=== PATIENT | male | born 1930 | race Caucasian/White ===

== ENCOUNTER 2016-09-14 12:24 | Day surgery (SDC) | payer OTHER ==
[~2016-09-14 12:24] MED LIST: ACET325 PO; LORTA5 PO; METO25 PO; NORV5TAB PO; OMEP20TA39 PO; PERI8.6T PO; SUCR1TAB PO; TAB-TAB PO; TIMO0.5S4 OP
[2016-09-14 12:57] VITALS: BP 156/90; PULSE 77; RESP 18; TEMP 97.2; O2SAT 94
[2016-09-14] MEDS ORDERED: METO25TA3 PO (13:04)
[2016-09-14] MEDS ORDERED: CARA1TAB6 PO (13:04)
[2016-09-14] MEDS ORDERED: AMLO5 PO (13:05)
[2016-09-14] MEDS ORDERED: PERI8.6T PO (13:06)
[2016-09-14] MEDS ORDERED: FERR1TAB36 PO (13:06)
[2016-09-14] MEDS ORDERED: PROT40TA PO (13:07)
[2016-09-14] MEDS ORDERED: TIMO0.5S30 EACH EYE (13:08)
[2016-09-14] MEDS ORDERED: ACET325T PO (13:09)
[2016-09-14] MEDS ORDERED: IOHEXOL 350 MG/ML 50 ML BTL (for RAD DIAG) IV ONE (13:51)
--- NOTE | 2016-09-14 16:22 | RADRPT ---
EXAM DATE/TIME: 09/14/2016 13:29 [facility] COMPARISON: No previous studies available for comparison. 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 MEDICAL HISTORY : CAD, HTN, Gastric ulcer, GERD, Gout, Anemia, Peritoneal carcinomatosis noted incidentally during surg [place] SURGICAL HISTORY : Antrectomy, Aortic valve replacement, Cholecystectomy, Jejunal bypass, Port placement, Upper endoscop y, Vagotomy ENCOUNTER: Initial ACUITY: 1 day PAIN SCORE: 0/10 FLUORO TIME: 0.2 minutes CONTRAST: 6 cc Omnipaque (iohexol) 350 PROCEDURE : 1. Access of [id number]. 2. Port patency injection. The risks, benefits and alternatives to the procedure were explained and verbal and written consent w as obtained. The patient was placed supine. The port was prepped in sterile fashion. Full sterile t echnique was used, including cap, mask, sterile gloves and gown, and a large sterile sheet. Hand hyg iene and 2% chlorhexidine prep was utilized per protocol for cutaneous antisepsis with appropriate dr y time for site. The previously placed port was accessed and positive contrast was injected for evaluation. Injection demonstrates report reservoir and catheter tubing are intact. The port catheter tip sits in the uppe r superior vena cava, however directed against the lateral wall of the SVC coming straight across fro m the left brachiocephalic vein. A fibrin sheath encompasses the distal 2 cm of the catheter. There i s spill of injected contrast out of the fibrin sheath into the innominate vein and subsequent flow in to the SVC which appears widely patent. The port was blocked with concentrated TPA solution to assist with dissolution of the fibrin sheath. CONCLUSION: The patient's port catheter tubing is positioned so as to lie against the lateral wall of the SVC. A distal fibrin sheath was also present. We introduced TPA in an attempt to resolve the fibrin sheath, however optimal function would necessitate revision of the port with repositioning of catheter tubing down into the low IVC. Maxwell Brambila MD on September 14, 2016 at 16:12 Board Certified Radiologist. This report was verified electronically.
== END 2016-09-14 14:40 | disposition home or self-care (01) ==
LOC: HROP 12:24 → HRIP 12:30 → HROP 14:40
PROVIDERS: ATTEND Internal Medicine Hematology & Oncology
DX: Z45.2 Encounter for adjustment and management of vascular access device (principal); C78.6 Secondary malignant neoplasm of retroperitoneum and peritoneum; C16.9 Malignant neoplasm of stomach, unspecified; I25.10 Atherosclerotic heart disease of native coronary artery without angina pectoris; I10 Essential (primary) hypertension; K21.9 Gastro-esophageal reflux disease without esophagitis; M10.9 Gout, unspecified
CPT/HCPCS: 36598; Q9967

== ENCOUNTER 2016-12-05 12:00 | Inpatient (IN) | payer OTHER, MEDICARE ==
[2016-12-05] VITALS (8 sets, daily range): BP systolic 130–164; BP diastolic 58–80; PULSE 52–62; RESP 15–22; TEMP 97.3–98.5; O2SAT 97–100
[~2016-12-05] VITALS: Ht 175.3 cm; Wt 55.0 kg
[~2016-12-05 12:00] MED LIST changes: -ACET325 PO; +ACET325T PO; +AMLO5 PO; +CARA1TAB6 PO; +FERR1TAB36 PO; -LORTA5 PO; -METO25 PO; +METO25TA3 PO; -NORV5TAB PO; -OMEP20TA39 PO; +PROT40TA PO; -SUCR1TAB PO; -TAB-TAB PO; +TIMO0.5S30 EACH EYE; -TIMO0.5S4 OP
[2016-12-05] MEDS ORDERED: SODIUM CHLOR 0.9% 1000 ML INJ 1,000 ML IV SCH (12:25)
[2016-12-05] MEDS ORDERED: ONDANSETRON HCL 4 MG/2 ML VIAL IVP ONE (12:30)
--- NOTE | 2016-12-05 12:42 | PD ---
HPI Chief Complaint: GI Complaint Time Seen by Provider: 12:37 Travel History International Travel<30 days: No Contact w/Intl Traveler<30days: No Traveled to known affect area: No History of Present Illness HPI 86-year-old male that presents to the ED for evaluation of nausea and vomiting for the past 5 days. Per patient he is unable to keep anything down. Including fluids and solids. Per patient he always throws them up. His been feeling very nauseous. He has a history of stomach cancer discovered last year around May. Patient is currently undergoing chemotherapy for the cancer. Per patient his last chemotherapy was done 2 weeks ago. Per patient he gets some nausea and vomited and some discomfort from the chemotherapy but not as bad as this time. Per patient he went to see his oncologist Dr. Rodrigues today who recommended that he comes here to get evaluated. He denies any fevers chills or sweats. His last bowel movement was yesterday and it was dark which per patient is his normal secondary to taking a lot of iron for his chronic anemia. Patient denies any chest pain or shortness of breath. No abdominal pain. Per patient he has no blood from the rectum or from the vomit. He denies any falls or injuries. Denies taking any blood thinners. Per patient he is taking antiemetics at home with no relief. He does not have any recent surgeries other than the surgery on May. Denies any pain. Denies any other medical problem. He does state feeling somewhat weak. PFSH Past Medical History Arthritis: Yes (LEFT KNEE) Cancer: No Cardiovascular Problems: Yes Chemotherapy: Yes Diminished Hearing: No Endocrine: No GERD: Yes Gout: Yes Genitourinary: No Hypertension: Yes Immune Disorder: No Musculoskeletal: Yes Neurologic: No Psychiatric: No Reproductive: No Respiratory: No Ulcer: Yes (1986) Past Surgical History Abdominal Surgery: Yes (09/04 STOMACH REMOVED, GALL BLADDER, APPY, mulitple sx related ulcers) Cardiac Surgery: Yes (aortic valve replacement 03/2011) Cholecystectomy: Yes Other Surgery: Yes (VAGUS NERVE REMOVED ) Social History Alcohol Use: No (denies) Tobacco Use: No Substance Use: No Allergies-Medications (Allergen,Severity, Reaction): Coded Allergies: No Known Allergies (Verified , 12/05/16) Reported Meds & Prescriptions Reported Meds & Active Scripts Active Reported Acetaminophen 325 Mg Tab 650 Mg PO Q4H PRN Timolol Opth Drops 0.5 % Soln 1 Drop EACH EYE BID Iron (Ferrous Sulfate) 325 Mg Tab 325 Mg PO DAILY Take Norvasc (Amlodipine Besylate) 5 Mg Tab 5 Mg PO DAILY Metoprolol Tartrate 25 Mg Tab 25 Mg PO DAILY Review of Systems Except as stated in HPI: all other systems reviewed are Neg Physical Exam Narrative GENERAL: SKIN: Warm and dry. HEAD: Atraumatic. Normocephalic. EYES: Pupils equal and round. No scleral icterus. No injection or drainage. ENT: No nasal bleeding or discharge. Mucous membranes pink and moist. Tongue is midline. No uvula deviation. NECK: Trachea midline. No JVD. CARDIOVASCULAR: Regular rate and rhythm. No murmurs, S3, S4. RESPIRATORY: No accessory muscle use. Clear to auscultation. Breath sounds equal bilaterally. GASTROINTESTINAL: Abdomen soft, non-tender, nondistended. Hepatic and splenic margins not palpable. MUSCULOSKELETAL: Extremities without clubbing, cyanosis, or edema. No obvious deformities. Full range of motion of the upper and lower extremities bilaterally. 2+ pulses bilaterally. No lumbar, thoracic, cervical spine tenderness to palpation. NEUROLOGICAL: Awake and alert. No obvious cranial nerve deficits. Motor grossly within normal limits. Five out of 5 muscle strength in the arms and legs. Normal speech. PSYCHIATRIC: Appropriate mood and affect; insight and judgment normal. Data Data Last Documented VS Vital Signs Date Time Temp Pulse Resp B/P Pulse Ox O2 Delivery O2 Flow Rate FiO2 12/05/16 14:18 59 16 137/58 97 12/05/16 12:30 Room Air 12/05/16 12:03 98.3 Orders Complete Blood Count With Diff (12/05/16 12:25) Comprehensive Metabolic Panel (12/05/16 12:25) Lipase (12/05/16 12:25) Lactic Acid (12/05/16 12:25) Urinalysis - C+S If Indicated (12/05/16 12:25) Iv Access Insert/Monitor (12/05/16 12:25) Ecg Monitoring (12/05/16 12:25) Oximetry (12/05/16 12:25) Ondansetron Inj (Zofran Inj) (12/05/16 12:30) Sodium Chlor 0.9% 1000 Ml Inj (Ns 1000 M (12/05/16 12:25) Ct Abd/Pel W Iv Contrast(Rout) (12/05/16 12:34) Iohexol 350 Inj (Omnipaque 350 Inj) (12/05/16 14:25) Admit Order (Ed Use Only) (12/05/16 15:36) Place In Observation (12/05/16 ) Vital Signs (Adult) Q4H (12/05/16 15:35) Activity Oob Ad Brooke (12/05/16 15:35) Intake + Output ANIA.QSHIFT (12/05/16 15:35) Diet Regular Basic (12/05/16 Dinner) Sodium Chlor 0.9% 1000 Ml Inj (Ns 1000 M (12/05/16 15:35) Sodium Chloride 0.9% Flush (Ns Flush) (12/05/16 15:45) Sodium Chloride 0.9% Flush (Ns Flush) (12/05/16 21:00) Acetaminophen (Tylenol) (12/05/16 15:45) Ondansetron Inj (Zofran Inj) (12/05/16 15:45) Prochlorperazine Supp (Compazine Supp) (12/05/16 15:45) Basic Metabolic Panel (Bmp) (12/06/16 06:00) Complete Blood Count With Diff (12/06/16 06:00) Resp Oxygen Miguel A C Titrat 1-4 L (12/05/16 ) Pt Request For Service (12/05/16 15:35) Case Management Consult (12/05/16 15:35) Enoxaparin Inj (Lovenox Inj) (12/05/16 15:45) Scd Bilateral/Knee High ANIA.BID (12/05/16 15:35) Gomez Bilateral/Knee High ANIA.QSHIFT (12/05/16 15:35) Consult Medical Oncology (12/05/16 ) Amlodipine (Norvasc) (12/06/16 09:00) Ferrous Sulfate (Ferrous Sulfate) (12/06/16 09:00) Metoprolol Tartrate (Lopressor) (12/06/16 09:00) Timolol 0.5% Opth Soln (Timoptic 0.5% Op (12/05/16 21:00) Labs Laboratory Tests Test 12/05/16 12/05/16 12:15 14:30 White Blood Count 9.0 TH/MM3 Red Blood Count 4.65 MIL/MM3 Hemoglobin 12.9 GM/DL Hematocrit 39.3 % Mean Corpuscular Volume 84.4 FL Mean Corpuscular Hemoglobin 27.8 PG Mean Corpuscular Hemoglobin 32.9 % Concent Red Cell Distribution Width 25.1 % Platelet Count 229 TH/MM3 Mean Platelet Volume 8.1 FL Neutrophils (%) (Auto) 70.1 % Lymphocytes (%) (Auto) 13.9 % Monocytes (%) (Auto) 12.6 % Eosinophils (%) (Auto) 2.7 % Basophils (%) (Auto) 0.7 % Neutrophils # (Auto) 6.3 TH/MM3 Lymphocytes # (Auto) 1.3 TH/MM3 Monocytes # (Auto) 1.1 TH/MM3 Eosinophils # (Auto) 0.2 TH/MM3 Basophils # (Auto) 0.1 TH/MM3 CBC Comment AUTO DIFF Differential Comment AUTO DIFF CONFIRMED Platelet Estimate NORMAL Platelet Morphology Comment NORMAL Tear Drop Cells Ovalocytes Keratocytes OCC Sodium Level 143 MEQ/L Potassium Level 3.3 MEQ/L Chloride Level 101 MEQ/L Carbon Dioxide Level 35.6 MEQ/L Anion Gap 6 MEQ/L Blood Urea Nitrogen 12 MG/DL Creatinine 0.56 MG/DL Estimat Glomerular Filtration 138 ML/MIN Rate Random Glucose 100 MG/DL Lactic Acid Level 1.5 mmol/L Calcium Level 9.4 MG/DL Total Bilirubin 0.5 MG/DL Aspartate Amino Transf 44 U/L (AST/SGOT) Alanine Aminotransferase 22 U/L (ALT/SGPT) Alkaline Phosphatase 76 U/L Total Protein 6.9 GM/DL Albumin 3.3 GM/DL Lipase 73 U/L Urine Color YELLOW Urine Turbidity HAZY Urine pH 7.5 Urine Specific [place] 1.017 Urine Protein NEG mg/dL Urine Glucose (UA) NEG mg/dL Urine Ketones NEG mg/dL Urine Occult Blood NEG Urine Nitrite NEG Urine Bilirubin NEG Urine Urobilinogen LESS THAN 2.0 MG/DL Urine Leukocyte Esterase NEG Urine RBC LESS THAN 1 /hpf Urine WBC 4 /hpf Urine Amorphous Sediment RARE Urine Hyaline Casts 1 /lpf Urine Mucus FEW /lpf Microscopic Urinalysis Comment CULT NOT INDICATED MDM Medical Decision Making Medical Screen Exam Complete: Yes Emergency Medical Condition: Yes Medical Record Reviewed: Yes Interpretation(s) CBC & BMP Diagram 4/4/17 12:15 LFTs WNL Lipase WNL UA negative Last Impressions Abdomen/Pelvis CT 12/05/16 1234 Signed Impressions: Service Date/Time: Monday, December 05, 2016 14:22 - CONCLUSION: 1. No evidence of acute abdominal or pelvic process. No masses are identified. 2. Continued marked dilatation common bile duct 2 cm without evidence of stone. 3. The previously seen cyst at the tail the pancreas is no longer identified. Dony Brown MD Differential Diagnosis Nausea and vomiting versus intractable nausea and vomiting versus dehydration versus inability to eat versus cancer pain versus obstruction versus anemia versus constipation versus acute abdomen Narrative Course 86-year-old male that presents to the ED for evaluation of nausea and vomiting. Patient was properly examined and was found to have signs and symptoms consistent with appears to be nausea and vomiting. Concerning for possible obstruction present as patient does have significant history. Apparently patient went to see his oncologist today Dr. Rodrigues who sent him here and per family member and patient he wanted a CT. There is no paperwork from the doctor of why specifically he wanted. Therefore a call was made to him. This time labs and imaging were ordered. Patient was started IV fluids as well as antiemetics. I spoke with Dr. Rodrigues over the phone who wanted patient to have a CT of the abdomen to rule out any sign of obstruction. He also told me that if the patient's CT does show any acute disease he will still like the patient to be admitted for intractable nausea and vomited for better nausea control and rehydration. This was discussed with the patient and family who agree with plan. Labs were drawn. CT was ordered. Labs and imaging were essentially unremarkable at this time. Slight anemia but this appears to be consistent with his previous labs. Patient was given IV fluids and antiemetics with good results at this time. He does however still feel very nauseous. He agrees with plan. AL was paged as patient is [employer]. Dr Wilson agrees to obs admission. Diagnosis Primary Impression: Intractable nausea and vomiting Qualified Code: R11.2 - Intractable vomiting with nausea, unspecified vomiting type Additional Impression: Abdominal carcinomatosis Admitting Information Admitting Physician Requests: Nabil Chand Dec 05, 2016 12:42
[2016-12-05 12:58] LABS: AUTOMATED NEUTROPHIL # 6.3 TH/MM3 (1.8-7.7); BASOPHIL # 0.1 TH/MM3 (0-0.2); BASOPHIL % 0.7 % (0.0-2.0); EOSINOPHIL # 0.2 TH/MM3 (0-0.4); EOSINOPHIL % 2.7 % (0.0-4.0); HEMATOCRIT 39.3 % (39.0-51.0); LYMPH % 13.9 % (9.0-44.0); LYMPHOCYTE # 1.3 TH/MM3 (1.0-4.8); MEAN CELL VOLUME 84.4 FL (80.0-100.0); MEAN CORPUSCULAR HEMOGLOBIN 27.8 PG (27.0-34.0); MEAN CORPUSCULAR HGB CONC 32.9 % (32.0-36.0); MONO % 12.6 % (0.0-8.0); NEUT % 70.1 % (16.0-70.0); PLATELET COUNT 229 TH/MM3 (150-450); RED BLOOD COUNT 4.65 MIL/MM3 (4.50-5.90); RED CELL DISTRIBUTION WIDTH 25.1 % (11.6-17.2)
[2016-12-05 13:00] LABS: HEMO FLAGS AUTO DIFF
[2016-12-05 13:13] LABS: ALT (GPT) 22 U/L (12-78); ANION GAP 6 MEQ/L (5-15); AST (GOT) 44 U/L (15-37); BICARBONATE 35.6 MEQ/L (21.0-32.0); BLOOD UREA NITROGEN 12 MG/DL (7-18); CHLORIDE 101 MEQ/L (98-107); GLOMERULAR FILTRATION RATE 138 ML/MIN (>89); POTASSIUM 3.3 MEQ/L (3.5-5.1); SODIUM (NA) 143 MEQ/L (136-145)
[2016-12-05 13:16] LABS: ALKALINE PHOSPHATASE 76 U/L (45-117); TOTAL BILIRUBIN ADULT 0.5 MG/DL (0.2-1.0)
[2016-12-05 13:29] LABS: KERATOCYTES OCC (NORMAL); PLATELET ESTIMATE SMEAR NORMAL (NORMAL); PLATELET MORPHOLOGY NORMAL (NORMAL); SCAN/DIFF AUTO DIFF CONFIRMED
[2016-12-05] MEDS ORDERED: IOHEXOL 350 MG/ML 10 ML VIAL (for RAD DIAG) IV ONE (14:25)
--- NOTE | 2016-12-05 15:06 | RADRPT ---
EXAM DATE/TIME: 12/05/2016 14:22 [facility] COMPARISON: CT ABDOMEN W CONTRAST, May 17, 2016, 15:57. CT THORAX W CONTRAST, May 17, 2016, 15:57. INDICATIONS : Abdominal pain and vomiting. IV CONTRAST: 75 cc Omnipaque 350 (iohexol) IV ORAL CONTRAST: No oral contrast ingested. RADIATION DOSE: 6.78 CTDIvol (mGy) MEDICAL HISTORY : Carcinoma, colon. Hypertension. SURGICAL HISTORY : Appendectomy. Cholecystectomy.Bowel surgery ENCOUNTER: Initial ACUITY: 4 - 6 days PAIN SCALE: 5/10 LOCATION: Bilateral abdomen TECHNIQUE: Volumetric scanning of the abdomen and pelvis was performed. Using automated exposure control and ad justment of the mA and/or kV according to patient size, radiation dose was kept as low as reasonably achievable to obtain optimal diagnostic quality images. FINDINGS: There is stable pleural thickening anteriorly in the left base. The liver and spleen are normal in si ze and no focal defects are identified. The gallbladder is absent. The pancreas demonstrates normal c ontour without evidence of mass or ductal dilatation. The intrahepatic ducts and common bile duct are prominent which may reflect reservoir effect. The pancreas demonstrates atrophy but is otherwise unr emarkable. A small hiatal hernia is present. The adrenal glands and kidneys appear normal bilaterally . No hydronephrosis or mass lesions are identified. Extensive postoperative changes are present the u pper abdomen with Billroth II type surgery Examination of the pelvis demonstrates no evidence of free fluid or pelvic mass. No abnormally enlarg ed inguinal or retroperitoneal lymph nodes are present. The bladder is unremarkable. There is diverti culosis without evidence of diverticulitis. CONCLUSION: 1. No evidence of acute abdominal or pelvic process. No masses are identified. 2. Continued marked dilatation common bile duct 2 cm without evidence of stone. 3. The previously seen cyst at the tail the pancreas is no longer identified. Dony Brown MD on December 05, 2016 at 14:53 Board Certified Radiologist. This report was verified electronically.
[2016-12-05 15:11] LABS: BLOOD, URINE NEG (NEG); COMMENT (UR) CULT NOT INDICATED; CULTURE IF INDICATED CULT NOT INDICATED; GLUCOSE,URINE NEG (NEG); HYALINE CAST, URINE 1 /lpf (RARE); KETONE, URINE NEG (NEG); MUCUS URINE FEW /lpf (OCC); NITRITE,URINE NEG (NEG); PH, URINE 7.5 (5.0-8.5); URINE COLOR YELLOW (YELLW/STRAW)
[2016-12-05] MEDS ORDERED: ACETAMINOPHEN 325 MG TAB PO PRN (15:45)
[2016-12-05] MEDS ORDERED: SODIUM CHLORIDE 0.9% FLUSH 10 ML FLUSH IV FLUSH PRN (15:45)
[2016-12-05] MEDS ORDERED: PROCHLORPERAZINE 25 MG SUPP RECTAL PRN (15:45)
[2016-12-05] MEDS: SODIUM CHLOR 0.9% 1000 ML INJ 1,000 ML IV SCH ×2 (15:49→20:46)
[2016-12-05] MEDS: ENOXAPARIN SODIUM 40 MG/0.4 ML SYRINGE SQ SCH (16:17)
[2016-12-05] MEDS: ONDANSETRON HCL 4 MG/2 ML VIAL IVP PRN (18:27)
[2016-12-05] MEDS: TIMOLOL MALEATE 0.5% OPHT SOLN 5 ML BTL EACH EYE SCH (20:41)
[2016-12-05] MEDS ORDERED: DORZ2SOL15 EACH EYE (20:44)
[2016-12-05] MEDS: SODIUM CHLORIDE 0.9% FLUSH 10 ML FLUSH IV FLUSH SCH (20:45)
--- NOTE | 2016-12-05 22:50 | HHI.HP ---
[facility] Andrew Shoemaker MD Admission Diagnosis Intractable nausea and vomiting, stomach cancer Diagnoses: (1) Intractable nausea and vomiting Diagnosis: Principal Chief Complaint: nausea and vomiting Travel History International Travel<30 Days: No Contact w/Intl Traveler <30 Da: No Traveled to Known Affected Are: No History of Present Illness patient is a 86 y/o male with metastatic gastric cancer- on chemo, was advised to come to the hospital by his oncologist because of persistent nausea and vomiting. he says that his last session of chemo was about two weeks ago. he started to have nausea and vomiting since ten days ago. he says that the last time he threw up was earlier tonight. he denies any abdominal pain or diarrhea. he's being followed up by . Review of Systems Constitutional: DENIES: Fever, Weight loss, Chills, Night Sweats Eyes: DENIES: Blurred vision, Diplopia, Vision loss, Double Vision Ears, nose, mouth, throat: DENIES: Tinnitus, Vertigo, Throat pain, Epistaxis Respiratory: DENIES: Apneas, Cough, Snoring, Wheezing, Hemoptysis, Sputum production, Shortness of breath Cardiovascular: DENIES: Chest pain, Palpitations, Syncope, Dyspnea on Exertion , PND, Lower Extremity Edema, Orthopnea, Claudication Gastrointestinal: COMPLAINS OF: Nausea, Vomiting, DENIES: Abdominal pain, Black stools, Bloody stools, Constipation, Difficulty Swallowing, Anorexia Genitourinary: DENIES: Urinary frequency, Urgency, Hematuria, Dysuria Musculoskeletal: DENIES: Joint pain, Muscle aches, Stiffness, Joint Swelling Integumentary: DENIES: Rash Neurologic: DENIES: Abnormal gait, Headache, Localized weakness, Paresthesias, Seizures, Speech Problems, Tremor, Poor Balance Psychiatric: DENIES: Anxiety, Confusion, Mood changes, Depression, Hallucinations, Agitation, Suicidal Ideation, Homicidal Ideation, Delusions Past Family Social History Past Medical History metastatic gastric cancer hypertension Past Surgical History abdominal surgery aortic valve replacement cholecystectomy Reported Medications Acetaminophen 325 Mg Tab 650 Mg PO Q4H PRN Timolol Opth Drops 0.5 % Soln 1 Drop EACH EYE BID Iron (Ferrous Sulfate) 325 Mg Tab 325 Mg PO DAILY Take Norvasc (Amlodipine Besylate) 5 Mg Tab 5 Mg PO DAILY Metoprolol Tartrate 25 Mg Tab 25 Mg PO DAILY Allergies: Coded Allergies: No Known Allergies (Verified , 12/05/16) Active Ordered Medications Current Medications Ondansetron HCl 4 mg 4 mg ONCE ONCE IVP Last administered on 12/05/16 12:49; Start 12/05/16 at 12:30; Stop 12/05/16 at 12:31; Status DC Sodium Chloride (NS 1000 ml Inj) 1,000 ml @ 1,000 mls/hr Q1H IV Last administered on 12/05/16 12:49; Start 12/05/16 at 12:25; Stop 12/05/16 at 13:24; Status DC Iohexol 75 ml 75 ml STK-MED ONCE IV Last administered on 12/05/16 14:25; Start 12/05/16 at 14:25; Stop 12/05/16 at 14:26; Status DC Sodium Chloride (NS 1000 ml Inj) 1,000 ml @ 100 mls/hr Q10H IV Last administered on 12/05/16 20:46; Start 12/05/16 at 15:35 Sodium Chloride (NS Flush) 2 ml UNSCH PRN IV FLUSH FLUSH AFTER USING IV ACCESS ; Start 12/05/16 at 15:45 Sodium Chloride (NS Flush) 2 ml BID IV FLUSH Last administered on 12/05/16 20: 45; Start 12/05/16 at 21:00 Acetaminophen (Tylenol) 650 mg Q4H PRN PO TEMP > 100.4; Start 12/05/16 at 15:45 Ondansetron HCl (Zofran Inj) 4 mg Q6H PRN IVP NAUSEA OR VOMITING Last administered on 12/05/16 18:27; Start 12/05/16 at 15:45 Prochlorperazine (Compazine Supp) 25 mg Q12H PRN RECTAL N/V IF ZOFRAN DOESN'T WORK; Start 12/05/16 at 15:45 Enoxaparin Sodium (Lovenox Inj) 40 mg Q24H SQ Last administered on 12/05/16 16: 17; Start 12/05/16 at 15:45 Amlodipine Besylate (Norvasc) 5 mg DAILY PO ; Start 12/06/16 at 09:00 Ferrous Sulfate (Ferrous Sulfate) 325 mg DAILY PO ; Start 12/06/16 at 09:00 Metoprolol Tartrate (Lopressor) 25 mg DAILY PO ; Start 12/06/16 at 09:00 Timolol Maleate (Timoptic 0.5% Opt Soln) 1 drop BID EACH EYE Last administered on 12/05/16t 20:41; Start 12/05/16 at 21:00 Family History cancer in sister and father. Social History quit smoking many years ago. drinks occasionally. Physical Exam Vital Signs Vital Signs Date Time Temp Pulse Resp B/P Pulse Ox O2 Delivery O2 Flow Rate FiO2 12/05/16 19:36 97.8 60 22 157/78 99 12/05/16 17:40 98.5 62 16 161/79 100 12/05/16 15:51 98.4 56 16 164/75 98 Room Air 12/05/16 14:18 59 16 137/58 97 12/05/16 12:30 98 Room Air 12/05/16 12:19 52 16 160/74 97 Room Air 12/05/16 12:03 98.3 62 15 148/80 100 Physical Exam GENERAL: elderly male, in no apparent distress. SKIN: No rashes, ecchymoses or lesions. Cool and dry. HEAD: Atraumatic. Normocephalic. No temporal or scalp tenderness. EYES: Pupils equal round and reactive. Extraocular motions intact. No scleral icterus. No injection or drainage. ENT: Nose without bleeding, purulent drainage or septal hematoma. Throat without erythema, tonsillar hypertrophy or exudate. Uvula midline. Airway patent. NECK: Trachea midline. No JVD or lymphadenopathy. Supple, nontender, no meningeal signs. CARDIOVASCULAR: systolic murmur in aortic area RESPIRATORY: Clear to auscultation. Breath sounds equal bilaterally. No wheezes , rales, or rhonchi. GASTROINTESTINAL: Abdomen soft, non-tender, nondistended. MUSCULOSKELETAL: Extremities without clubbing, cyanosis, or edema. No joint tenderness, effusion, or edema noted. No calf tenderness. Negative Homans sign bilaterally. NEUROLOGICAL: Awake and alert. Cranial nerves II through XII intact. Motor and sensory grossly within normal limits. Five out of 5 muscle strength in all muscle groups. Normal speech. Laboratory Laboratory Tests Test 12/05/16 12/05/16 12:15 14:30 White Blood Count 9.0 Red Blood Count 4.65 Hemoglobin 12.9 Hematocrit 39.3 Mean Corpuscular Volume 84.4 Mean Corpuscular Hemoglobin 27.8 Mean Corpuscular Hemoglobin 32.9 Concent Red Cell Distribution Width 25.1 Platelet Count 229 Mean Platelet Volume 8.1 Neutrophils (%) (Auto) 70.1 Lymphocytes (%) (Auto) 13.9 Monocytes (%) (Auto) 12.6 Eosinophils (%) (Auto) 2.7 Basophils (%) (Auto) 0.7 Neutrophils # (Auto) 6.3 Lymphocytes # (Auto) 1.3 Monocytes # (Auto) 1.1 Eosinophils # (Auto) 0.2 Basophils # (Auto) 0.1 CBC Comment AUTO DIFF Differential Comment AUTO DIFF CONFIRMED Platelet Estimate NORMAL Platelet Morphology Comment NORMAL Tear Drop Cells Ovalocytes Keratocytes OCC Sodium Level 143 Potassium Level 3.3 Chloride Level 101 Carbon Dioxide Level 35.6 Anion Gap 6 Blood Urea Nitrogen 12 Creatinine 0.56 Estimat Glomerular Filtration 138 Rate Random Glucose 100 Lactic Acid Level 1.5 Calcium Level 9.4 Total Bilirubin 0.5 Aspartate Amino Transf 44 (AST/SGOT) Alanine Aminotransferase 22 (ALT/SGPT) Alkaline Phosphatase 76 Total Protein 6.9 Albumin 3.3 Lipase 73 Urine Color YELLOW Urine Turbidity HAZY Urine pH 7.5 Urine Specific [place] 1.017 Urine Protein NEG Urine Glucose (UA) NEG Urine Ketones NEG Urine Occult Blood NEG Urine Nitrite NEG Urine Bilirubin NEG Urine Urobilinogen LESS THAN 2.0 Urine Leukocyte Esterase NEG Urine RBC LESS THAN 1 Urine WBC 4 Urine Amorphous Sediment RARE Urine Hyaline Casts 1 Urine Mucus FEW Microscopic Urinalysis Comment CULT NOT INDICATED Result Diagram: 12/05/16 1215 12/05/16 1215 Imaging Last Impressions Abdomen/Pelvis CT 12/05/16 1234 Signed Impressions: Service Date/Time: Monday, December 05, 2016 14:22 - CONCLUSION: 1. No evidence of acute abdominal or pelvic process. No masses are identified. 2. Continued marked dilatation common bile duct 2 cm without evidence of stone. 3. The previously seen cyst at the tail the pancreas is no longer identified. Dony Brown MD Assessment and Plan Assessment and Plan A/P - peritoneal carcinomatosis/ metastatic gastric cancer - on chemo with intractable nausea/ vomiting start on liquid diet- antiemetics as needed- oncology consulted. -hypertension; resume home BP meds; metoprolol and norvasc- will monitor and adjust the regimen as needed -hypokalemia; will replace and monitor -s/p aortic valve replacement ( bovine) -DVT prophylaxis with lovenox Discussed Condition With the patient. Problem Qualifiers (1) Intractable nausea and vomiting: Qualified Code: R11.2 - Intractable vomiting with nausea, unspecified vomiting type Florecita Gomez MD Dec 05, 2016 22:50
[2016-12-05] MEDS ORDERED: ZOLPIDEM TARTRATE 5 MG TAB PO PRN (23:00)
[2016-12-06 03:29] VITALS: BP 134/71; PULSE 57; RESP 20; TEMP 97.7; O2SAT 97
[2016-12-06 05:25] LABS: BICARBONATE 32.6 MEQ/L (21.0-32.0)
[2016-12-06 05:36] LABS: POTASSIUM 3.1 MEQ/L (3.5-5.1)
[2016-12-06] MEDS ORDERED: POTASSIUM CHLORIDE 20 MEQ CONTROLLED RELEASE TAB PO ONE (07:30)
[2016-12-06] MEDS: TIMOLOL MALEATE 0.5% OPHT SOLN 5 ML BTL EACH EYE SCH ×2 (07:55→21:00)
[2016-12-06] MEDS: amLODIPine BESYLATE 5 MG TAB PO SCH (07:56)
[2016-12-06] MEDS: FERROUS SULFATE 325 MG (65 MG ELEMENTAL IRON) TAB PO SCH (07:56)
[2016-12-06] MEDS: METOPROLOL TARTRATE 25 MG TAB PO SCH (07:56)
[2016-12-06] MEDS: SODIUM CHLORIDE 0.9% FLUSH 10 ML FLUSH IV FLUSH SCH ×2 (07:57→21:12)
[2016-12-06 08:20] VITALS: BP 164/81; PULSE 72; RESP 18; O2SAT 99
[2016-12-06 09:09] LABS: AUTOMATED NEUTROPHIL # 3.8 TH/MM3 (1.8-7.7); BASOPHIL # 0.1 TH/MM3 (0-0.2); EOSINOPHIL # 0.3 TH/MM3 (0-0.4); EOSINOPHIL % 4.6 % (0.0-4.0); HEMATOCRIT 37.9 % (39.0-51.0); HEMO FLAGS DIFF FINAL; LYMPH % 19.6 % (9.0-44.0); LYMPHOCYTE # 1.2 TH/MM3 (1.0-4.8); MEAN CELL VOLUME 84.6 FL (80.0-100.0); MEAN CORPUSCULAR HGB CONC 31.9 % (32.0-36.0); MONO % 13.8 % (0.0-8.0); PLATELET COUNT 175 TH/MM3 (150-450); RED BLOOD COUNT 4.48 MIL/MM3 (4.50-5.90); RED CELL DISTRIBUTION WIDTH 24.7 % (11.6-17.2); WHITE BLOOD COUNT 6.2 TH/MM3 (4.0-11.0)
--- NOTE | 2016-12-06 09:38 | MB ---
cc: CARIDAD STARR M.D. DATE OF SERVICE December 06, [address] Gomez REASON FOR ONCOLOGY CONSULT To render opinion regarding patient with metastatic gastric cancer, admitted with intractable vomiting and dehydration. HISTORY OF PRESENT ILLNESS The patient is a very pleasant 86-year-old male with history of peritoneal carcinomatosis which appeared to be a metastatic gastric carcinoma, admitted with intractable vomiting. He first presented in May of 2016 with worsening nausea and vomiting. 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 He underwent exploratory laparotomy and during surgery the afferent loop was noted to be obstructive and he was also found to have scattered small nodules throughout the abdomen, mostly in the left upper quadrant. Biopsy showed moderately differentiated adenocarcinoma mucinous features, thought to be gastric cancer. He later had an outpatient PET scan which showed thickened gastric wall with significant hypermetabolic uptake. He wanted to be aggressive with treatment and was started on dose reduced FOLFOX chemotherapy. He just completed a fifth cycle of chemotherapy in the middle of November. He went to [place] for vacation and while over there he started developing vomiting. He stated he has no nausea, he will throw up a short while after he eats. He was not able to keep any liquid or solid food down for several days. When I saw him in the clinic, he appeared dehydrated. He was directed to go to the emergency room. He denies any abdominal pain. He has no fever or chills. He was gaining weight while he was on chemotherapy but now started losing weight again. Denies any chest pain, palpitations, any shortness of breath or cough. PAST MEDICAL HISTORY 1. Metastatic esophageal cancer with peritoneal carcinomatosis as above. 2. Coronary artery disease. 3. Gastric ulcer. 4. Gastroesophageal reflux disease. 5. Gout. 6. Hypertension. 7. Anemia. PAST SURGICAL HISTORY 1. Antrectomy. 2. aortic valve replacement. 3. Cholecystectomy. 4. Jejunal bypass. 5. Port placement. 6. Upper endoscopy. 7. Vagotomy. 8. Cataract surgery. FAMILY HISTORY Noncontributory. SOCIAL HISTORY He quit smoking in 1965. He only smoked for about five years. Denies alcohol use at this time. ALLERGIES No known drug allergy. MEDICATIONS 1. Potassium. 2. Amlodipine. 3. Ferrous sulfate. 4. Metoprolol. 5. Timolol eye drops. 6. Lovenox. REVIEW OF SYSTEMS CONSTITUTIONAL: He has weight loss secondary to vomiting. EYES: He denies any blurry vision, double vision. ENT: No mouth sores or voice changes. CARDIOVASCULAR: No chest pressure, palpitation. RESPIRATORY: Denies shortness of breath or cough. GI: As above. : No dysuria or hematuria. MUSCULOSKELETAL: Denies any bone pain. HEMATOLOGY: Negative. ENDOCRINE: Negative. DERMATOLOGY: Negative. PSYCHIATRIC: Negative. NEUROLOGIC: Negative. PHYSICAL EXAMINATION VITALS: Temperature 97.7, blood pressure 134/71. GENERAL: He is alert and oriented x 3, in no acute distress. Looks weak. HEENT: Atraumatic, normocephalic. Pupils equal, round and reactive to light. Extraocular muscles intact. No scleral icterus. Oropharynx - dry mucosa, no lesion. NECK: No thyromegaly. No palpable mass. LYMPHATICS: No palpable cervical, clavicular, axillary or inguinal lymph nodes. CARDIOVASCULAR: Regular S1 and S1-S2. No murmur. LUNGS: Clear to auscultation bilaterally. No wheezing or rhonchi. ABDOMEN: Soft, scaphoid. I could not palpate liver or spleen. Nontender. Bowel sounds decreased. EXTREMITIES: No cyanosis, clubbing or edema. BACK: No paravertebral tenderness. SKIN: No rash. NEUROLOGIC: Exam nonfocal. LABORATORY DATA Reviewed ASSESSMENT 1. Metastatic gastric cancer. He first presented with afferent loop obstruction. He was found to have peritoneal carcinomatosis mostly in the left upper quadrant. Biopsy showed moderately differentiated carcinoma. PET scan showed thickened gastric wall with significant uptake consistent with gastric cancer. He has now completed five cycles of FOLFOX chemotherapy. He had tolerated chemotherapy quite well. He was doing quite well before he developed the vomiting. He denies any nausea. I do not think his vomiting is due to the chemotherapy. His last chemotherapy was in the middle of November. He had a CT scan yesterday which did not show clear evidence of progression of disease or obstruction. He felt a little bbetter with IV fluid hydration. However, he still could not keep anything down. He tried to eat twice last night and threw up both times. I am going to consult Gastroenterology for further evaluation. 2. Anemia due to iron deficiency. Hemoglobin is stable. 3. Coronary disease, stable. 4. Hypertension, stable. PLAN 1. Reviewed CT scan with the patient. 2. Consult gastroenterology for further evaluation. 3. Continue hydration. He may need intravenous nutrition if he is still not able to keep anything down. 4. DVT prophylaxis. Thank you Dr. Gomez for asking me to see this patient. MD YOSELIN Barlow/LUIS ANGEL /8:28 AM /9:17 AM KENNTEH
--- NOTE | 2016-12-06 10:20 | HHI.PR ---
Subjective Remarks Follow-up for dysphagia. The patient states that he has not been able to tolerate solids or liquids for the past 6 days without vomiting. He continues to report nausea overnight whenever he tries to drink anything. He states he had a normal BM yesterday. Objective Vitals Vital Signs Date Time Temp Pulse Resp B/P Pulse Ox O2 Delivery O2 Flow Rate FiO2 12/06/16 08:20 72 18 164/81 99 12/06/16 03:29 97.7 57 20 134/71 97 12/05/16 23:20 97.3 54 20 130/65 97 12/05/16 19:36 97.8 60 22 157/78 99 12/05/16 17:40 98.5 62 16 161/79 100 12/05/16 15:51 98.4 56 16 164/75 98 Room Air 12/05/16 14:18 59 16 137/58 97 12/05/16 12:30 98 Room Air 12/05/16 12:19 52 16 160/74 97 Room Air 12/05/16 12:03 98.3 62 15 148/80 100 I/O 12/05/16 12/05/16 12/05/16 12/06/16 12/06/16 12/06/16 07:00 15:00 23:00 07:00 15:00 23:00 Intake Total 2000 ml Output Total 975 ml 650 ml 200 ml Balance 1025 ml -650 ml -200 ml Intake IV Total 2000 ml Output Urine Total 975 ml 650 ml 200 ml # Voids 2 Result Diagram: 12/06/16 0849 12/06/16 0417 Imaging Last Impressions Abdomen/Pelvis CT 12/05/16 1234 Signed Impressions: Service Date/Time: Monday, December 05, 2016 14:22 - CONCLUSION: 1. No evidence of acute abdominal or pelvic process. No masses are identified. 2. Continued marked dilatation common bile duct 2 cm without evidence of stone. 3. The previously seen cyst at the tail the pancreas is no longer identified. Dony Brown MD Objective Remarks GENERAL: Well-developed fair-nourished thin pleasant elderly male. In no acute distress. SKIN: Warm and dry. No lesions noted. HEENT: Normocephalic. Pupils equal and round. Mucous membranes pink and moist. CARDIOVASCULAR: Regular rate and rhythm. No murmur appreciated. RESPIRATORY: No accessory muscle use. Clear to auscultation. Breath sounds equal bilaterally. GASTROINTESTINAL: Abdomen soft, non-tender, nondistended. Bowel sounds x4. MUSCULOSKELETAL: No obvious deformities. No clubbing or cyanosis. No edema. NEUROLOGICAL: Awake and alert. No focal neurological deficits. Moves upper and lower extremities spontaneously. Normal speech. PSYCHIATRIC: Appropriate mood and affect; insight and judgment normal. A/P Problem List: (1) Intractable nausea and vomiting ICD Code: R11.2 Status: Acute Assessment and Plan 86-year-old male with past medical history of metastatic gastric cancer, HTN presented with intractable nausea and vomiting peritoneal carcinomatosis/metastatic gastric cancer: on chemo with intractable nausea/ vomiting. Abdominal CT shows no definite progression of patient's disease, continued dilation of the common bile duct. Patient's oncologist, Dr. Turner, consulted. Intractable nausea and vomiting: As above. Oncology dialysis is related to chemotherapy, consulted gastroenterology for evaluation. Clear liquids. IVF. IV Protonix. Antiemetics as needed. Hypokalemia: Potassium 3.3/3.1. Replace orally. Supplemental potassium by IVF. Magnesium within normal limits. Follow-up BMP. Hypertension: Chronic, stable. Continue home medications. Monitor. DVT prophylaxis: Lovenox Written by Naseem Marie, acting as scribe for Dr. Murillo on 12/06/16 at 10:20. All or portions of this note were transcribed by BOLA Short . I, Dr. Ford Murillo personally performed the history, physical exam, and medical decision making; and confirmed the accuracy of the information in the transcribed note. Authenticated by Dr. Ford Murillo on 12/06/16 at 23:10. Problem Qualifiers (1) Intractable nausea and vomiting: Qualified Code: R11.2 - Intractable vomiting with nausea, unspecified vomiting type Naseem Marie Dec 06, 2016 10:20 Linda Murillo DO Dec 06, 2016 23:11
[2016-12-06 11:08] VITALS: BP 148/72; PULSE 56; RESP 18; TEMP 97.5; O2SAT 96
[2016-12-06] MEDS: PANTOPRAZOLE SODIUM 40 MG VIAL IV PUSH SCH (11:32)
--- NOTE | 2016-12-06 12:54 | PD.CONS ---
HPI History of Present Illness This is a 86 year old [gentleman] who has been having nausea and vomiting for 6 days. It came on gradually, happening only with "heavy" or fatty foods like stake, and progressed to the point that he could not eat. He has a hx of gastric cancer for which he started chemotherapy in september. He denies having n /v prior to this episode and last had chemo 3 weeks ago. he admits to having noticed mild RUQ tenderness when palpated by some other providers, but not currently and not independently of deep palpation. He denies blood in vomit, blood in stool. He has had nothing to eat or drink today except a small amount of water with PO meds this morning. (Karely Martins) PFSH Past Medical History metastatic gastric cancer hypertension Past Surgical History abdominal surgery aortic valve replacement cholecystectomy (Karely Martins) Coded Allergies: No Known Allergies (Verified , 12/05/16) Medications Current Medications Medications (Trade) Dose Ordered Sig/Karlie Route PRN Reason Start Time Stop Time Status Last Admin Dose Admin Sodium Chloride (NS Flush) 2 ml UNSCH PRN IV FLUSH FLUSH AFTER USING IV ACCESS 12/05/16 15:45 Sodium Chloride (NS Flush) 2 ml BID IV FLUSH 12/05/16 21:00 12/05/16 20:45 Acetaminophen (Tylenol) 650 mg Q4H PRN PO TEMP > 100.4 12/05/16 15:45 Ondansetron HCl (Zofran Inj) 4 mg Q6H PRN IVP NAUSEA OR VOMITING 12/05/16 15:45 12/05/16 18:27 Prochlorperazine (Compazine Supp) 25 mg Q12H PRN RECTAL N/V IF ZOFRAN DOESN'T WORK 12/05/16 15:45 Enoxaparin Sodium (Lovenox Inj) 40 mg Q24H SQ 12/05/16 15:45 12/05/16 16:17 Amlodipine Besylate (Norvasc) 5 mg DAILY PO 12/06/16 09:00 12/06/16 07:56 Ferrous Sulfate (Ferrous Sulfate) 325 mg DAILY PO 12/06/16 09:00 12/06/16 07:56 Metoprolol Tartrate (Lopressor) 25 mg DAILY PO 12/06/16 09:00 12/06/16 07:56 Timolol Maleate 1 drop 1 drop BID EACH EYE 12/05/16 21:00 12/06/16 07:55 Potassium Chloride/Sodium Chloride (KCl Inj/NS 1000 ml Inj) 1,010 ml @ 100 mls/hr Q10H6M IV 12/06/16 15:35 Zolpidem Tartrate (Ambien) 5 mg HS PRN PO INSOMNIA 12/05/16 23:00 12/05/16 23:09 Pantoprazole Sodium (Protonix Inj) 40 mg Q24H IV PUSH 12/06/16 11:00 12/06/16 11:32 Dorzolamide/ Timolol (Cosopt 2-0.5% Opth Soln) 1 drop BID EACH EYE 12/06/16 21:00 Family History cancer in sister and father. Social History quit smoking many years ago. drinks occasionally. (Karely Martins) Review of Systems Constitutional: COMPLAINS OF: Weight loss, DENIES: Fatigue, Fever, Change in appetite Eyes: DENIES: Blurred vision Ears, nose, mouth, throat: COMPLAINS OF: Oral lesions, DENIES: Hearing loss Respiratory: DENIES: Wheezing Cardiovascular: DENIES: Chest pain Gastrointestinal: COMPLAINS OF: Black stools (takes iron supplements), Nausea, Vomiting, DENIES: Abdominal pain, Bloody stools, Diarrhea, Swelling of Abdomen , Heartburn Musculoskeletal: DENIES: Joint pain Integumentary: DENIES: Pruritus, Rash, Jaundice Hematologic/lymphatic: DENIES: Bruising (Karely Martins) GI Exam Vitals I&O Vital Signs Date Time Temp Pulse Resp B/P Pulse Ox O2 Delivery O2 Flow Rate FiO2 12/06/16 11:08 97.5 56 18 148/72 96 12/06/16 08:20 72 18 164/81 99 12/06/16 03:29 97.7 57 20 134/71 97 12/05/16 23:20 97.3 54 20 130/65 97 12/05/16 19:36 97.8 60 22 157/78 99 12/05/16 17:40 98.5 62 16 161/79 100 12/05/16 15:51 98.4 56 16 164/75 98 Room Air 12/05/16 14:18 59 16 137/58 97 I/O 12/05/16 12/05/16 12/05/16 12/06/16 12/06/16 12/06/16 07:00 15:00 23:00 07:00 15:00 23:00 Intake Total 2000 ml Output Total 975 ml 650 ml 200 ml Balance 1025 ml -650 ml -200 ml Intake IV Total 2000 ml Output Urine Total 975 ml 650 ml 200 ml # Voids 2 Imaging Last Impressions Abdomen/Pelvis CT 12/05/16 1234 Signed Impressions: Service Date/Time: Monday, December 05, 2016 14:22 - CONCLUSION: 1. No evidence of acute abdominal or pelvic process. No masses are identified. 2. Continued marked dilatation common bile duct 2 cm without evidence of stone. 3. The previously seen cyst at the tail the pancreas is no longer identified. Dony Brown MD Laboratory Test 12/05/16 12/06/16 12/06/16 14:30 04:17 08:49 Urine Color YELLOW Urine Turbidity HAZY Urine pH 7.5 Urine Specific [place] 1.017 Urine Protein NEG mg/dL Urine Glucose (UA) NEG mg/dL Urine Ketones NEG mg/dL Urine Occult Blood NEG Urine Nitrite NEG Urine Bilirubin NEG Urine Urobilinogen LESS THAN 2.0 MG/DL Urine Leukocyte Esterase NEG Urine RBC LESS THAN 1 /hpf Urine WBC 4 /hpf Urine Amorphous Sediment RARE Urine Hyaline Casts 1 /lpf Urine Mucus FEW /lpf Microscopic Urinalysis Comment CULT NOT INDICATED Sodium Level 144 MEQ/L Potassium Level 3.1 MEQ/L Chloride Level 102 MEQ/L Carbon Dioxide Level 32.6 MEQ/L Anion Gap 9 MEQ/L Blood Urea Nitrogen 6 MG/DL Creatinine 0.40 MG/DL Estimat Glomerular Filtration 203 ML/MIN Rate Random Glucose 72 MG/DL Calcium Level 8.6 MG/DL Magnesium Level 1.9 MG/DL White Blood Count 6.2 TH/MM3 Red Blood Count 4.48 MIL/MM3 Hemoglobin 12.1 GM/DL Hematocrit 37.9 % Mean Corpuscular Volume 84.6 FL Mean Corpuscular Hemoglobin 27.0 PG Mean Corpuscular Hemoglobin 31.9 % Concent Red Cell Distribution Width 24.7 % Platelet Count 175 TH/MM3 Mean Platelet Volume 7.7 FL Neutrophils (%) (Auto) 61.0 % Lymphocytes (%) (Auto) 19.6 % Monocytes (%) (Auto) 13.8 % Eosinophils (%) (Auto) 4.6 % Basophils (%) (Auto) 1.0 % Neutrophils # (Auto) 3.8 TH/MM3 Lymphocytes # (Auto) 1.2 TH/MM3 Monocytes # (Auto) 0.9 TH/MM3 Eosinophils # (Auto) 0.3 TH/MM3 Basophils # (Auto) 0.1 TH/MM3 CBC Comment DIFF FINAL Differential Comment Physical Examination GENERAL: thin HEENT: EOMI; normocephalic; atraumatic; no jaundice. NECK: Neck is supple, no JVD CHEST: Chest is clear to auscultation and percussion. CARDIAC: Regular rate and rhythm with no murmur gallop or rubs. ABDOMEN: Soft, nondistended, nontender; no hepatosplenomegaly; bowel sounds are present in all four quadrants. EXTREMITIES: No clubbing, cyanosis, or edema. SKIN: Normal; no rash; no jaundice. BODY CARE MANAGER: No focal deficits; alert and oriented times three. (Karely Martins) Assessment and Plan Plan ASSESSMENT: - nausea and vomiting. Chemo s/e vs GI etiology. Hx metastatic gastric ca, pt last had chemo 2-3 weeks ago, being followed by oncology. CT 12/05/16 ----> continued marked dilatation common bile duct 2 cm without evidence of stone, previously seen cyst at tail no longer identified PLAN: - EGD today - NPO - obtain consents - MRCP - await results of above This pt was examined by myself and Dr. Hurtado and this note is written on his behalf. (Karely Martins) Physician Comments Seen and examined with BASKETBALL COMMENTATOR< egd today. MRCP to fu on dilated biliary ducts. DIscussedw ith Dr. Turner. Will follow thank you (Day Hurtado MD) Karely Martins Dec 06, 2016 12:54 Day Hurtado MD Dec 06, 2016 18:44
[2016-12-06 14:30] VITALS: BP 148/72; PULSE 58; RESP 18; TEMP 97.5; O2SAT 96
[2016-12-06] MEDS ORDERED: PROPOFOL 200 MG/20 ML AMP IV ONE (14:58)
--- NOTE | 2016-12-06 15:18 | GIPROC ---
[facility] [address] [facility]. [facility], [address] EGD PROCEDURE REPORT EXAM DATE: 12/06/2016 PATIENT NAME: Jesse Krishnamurthy MR #: [id number] BIRTHDATE: 1930 ATTENDING: Day Hurtado MD ORDER #: [id number] ENTREPRENEURIAL FINANCE PROFESSOR: Tucker Vieira and Raza Miller STATUS: inpatient INDICATIONS: The patient is a 86 yr old male here for an EGD due to dysphagia, nausea, vomiting, and weight loss PROCEDURE PERFORMED: EGD w/ biopsy MEDICATIONS: None and Per Anesthesia. TOPICAL ANESTHETIC: CONSENT: The patient understands the risks and benefits of the procedure and understands that these risks include, but are not limited to: sedation, allergic reaction, infection, perforation and/or bleeding. Alternative means of evaluation and treatment include, among others: physical exam, x-rays, and/or surgical intervention. The patient elects to proceed with this endoscopic procedure. medical equipment was checked for proper function. Hand hygiene and appropriate measures for infection prevention was taken. After the risks, benefits and alternatives of the procedure were thoroughly explained, Informed consent was verified, confirmed and timeout was successfully executed by the treatment team. The patient was anesthetized with topical anesthesia and the Pentax [id number] endoscope was introduced through the mouth and advanced to the stomach body. Retroflexed views revealed no abnormalities The gastroscope was then slowly withdrawn and removed. STOMACH: Circumferential mass, ? inflammation in the gastric body causing partial obstruction. Food/ liquid retained above this area up into the esophagus. This was suctioned. ADVERSE EVENTS: There were no complications. IMPRESSIONS: 1. Circumferential mass, ? inflammation in the gastric body causing partial obstruction. Food/ liquid retained above this area up into the esophagus. This was suctioned 2. Retroflexed views revealed no abnormalities RECOMMENDATIONS: 1. Await biopsy results. Biopsy results will not be ready for 7-10 days. If you don't hear from us in two weeks, call our office for biopsy results. 2. Anti-reflux regimen 3. Continue PPI 4. Discussed with Dr. wu PATIENT CONDITION: stable DISPOSITION: Inpatient REPEAT EXAM: Return as needed for EGD pending biopsy results Day Hurtado MD eSigned: Day Hurtado MD 12/06/2016 3:17 PM cc:
[2016-12-06] MEDS: POTASSIUM CHLORIDE INJ 20 MEQ in SODIUM CHLOR 0.9% 1000 ML INJ 1,000 ML IV SCH (16:30)
[2016-12-06] MEDS: ENOXAPARIN SODIUM 40 MG/0.4 ML SYRINGE SQ SCH (16:33)
[2016-12-06] MEDS ORDERED: GADODIAMIDE PF 287 MG/ML 10 ML VIAL (for RAD MRI) IV ONE (17:51)
--- NOTE | 2016-12-06 18:52 | RADRPT ---
EXAM DATE/TIME: 12/06/2016 17:40 [facility] COMPARISON: No previous studies available for comparison. INDICATIONS : Abdominal pain. Nausea and vomiting. CONTRAST: 10 cc Omniscan (gadodiamide) IV MEDICAL HISTORY : Carcinoma, gastric. Hypertension. SURGICAL HISTORY : Cholecystectomy. Aortic valve replacement. Vagal nerve clipping. ENCOUNTER: Subsequent ACUITY: 2 day PAIN SCORE: 3/10 LOCATION: abdomen. TECHNIQUE: Multiplanar, multisequence magnetic resonance imaging of the abdomen was performed. High-resolution 3D dataset was utilized to reconstruct maximum-intensity projection (MIP) images. FINDINGS: Common bile duct measures about 1.8 cm in diameter. The etiology for the ductal dilatation is unclear from this exam. No evidence for choledocholithiasis. No enlargement or mass identified within the pa ncreatic head. No significant abnormality is seen in the liver, spleen, adrenals, kidneys or pancreas. No significan t free fluid. 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 CONCLUSION: 1. Biliary ductal dilatation to 1.8 cm without evidence for choledocholithiasis or pancreatic mass. P revious cholecystectomy. No acute findings. Geraldo Whitten MD on December 06, 2016 at 18:43 Board Certified Radiologist. This report was verified electronically.
[2016-12-06 19:25] VITALS: BP 137/64; PULSE 73; RESP 18; TEMP 98.5; O2SAT 91; O2SAT 97
[2016-12-06] MEDS: SUCRALFATE 1 GM/10 ML CUP PO SCH (21:11)
[2016-12-06] MEDS: DORZOLAMIDE/TIMOLOL OPTH SOLN 10 ML BTL EACH EYE SCH (21:12)
[2016-12-07] VITALS (8 sets, daily range): BP systolic 127–164; BP diastolic 66–85; PULSE 56–87; RESP 15–20; TEMP 96.8–98.7; O2SAT 93–98
[2016-12-07] MEDS: POTASSIUM CHLORIDE INJ 20 MEQ in SODIUM CHLOR 0.9% 1000 ML INJ 1,000 ML IV SCH (01:41)
[2016-12-07 07:50] LABS: AUTOMATED NEUTROPHIL # 3.8 TH/MM3 (1.8-7.7); BASOPHIL # 0.1 TH/MM3 (0-0.2); BASOPHIL % 0.9 % (0.0-2.0); EOSINOPHIL # 0.2 TH/MM3 (0-0.4); HEMATOCRIT 39.3 % (39.0-51.0); MEAN CELL VOLUME 84.2 FL (80.0-100.0); MEAN CORPUSCULAR HEMOGLOBIN 26.9 PG (27.0-34.0); MEAN CORPUSCULAR HGB CONC 31.9 % (32.0-36.0); MONO % 11.7 % (0.0-8.0); NEUT % 66.4 % (16.0-70.0); PLATELET COUNT 190 TH/MM3 (150-450); RED BLOOD COUNT 4.67 MIL/MM3 (4.50-5.90); RED CELL DISTRIBUTION WIDTH 24.9 % (11.6-17.2); WHITE BLOOD COUNT 5.7 TH/MM3 (4.0-11.0)
[2016-12-07 07:53] LABS: HEMO FLAGS AUTO DIFF
[2016-12-07 08:17] LABS: BICARBONATE 31.9 MEQ/L (21.0-32.0)
[2016-12-07 08:26] LABS: POTASSIUM 2.8 MEQ/L (3.5-5.1)
[2016-12-07] MEDS ORDERED: POTASSIUM CHLORIDE 20 MEQ CONTROLLED RELEASE TAB PO ONE (08:30)
[2016-12-07 08:37] LABS: PLATELET ESTIMATE SMEAR NORMAL (NORMAL)
[2016-12-07 08:38] LABS: PLATELET MORPHOLOGY NORMAL (NORMAL); SCAN/DIFF AUTO DIFF CONFIRMED
[2016-12-07] MEDS: amLODIPine BESYLATE 5 MG TAB PO SCH (09:26)
[2016-12-07] MEDS: ONDANSETRON HCL 4 MG/2 ML VIAL IVP PRN (09:26)
[2016-12-07] MEDS: FERROUS SULFATE 325 MG (65 MG ELEMENTAL IRON) TAB PO SCH (09:26)
[2016-12-07] MEDS: METOPROLOL TARTRATE 25 MG TAB PO SCH (09:26)
[2016-12-07] MEDS: SUCRALFATE 1 GM/10 ML CUP PO SCH ×2 (09:26→21:04)
[2016-12-07] MEDS: DORZOLAMIDE/TIMOLOL OPTH SOLN 10 ML BTL EACH EYE SCH ×2 (09:27→21:05)
[2016-12-07] MEDS: TIMOLOL MALEATE 0.5% OPHT SOLN 5 ML BTL EACH EYE SCH ×2 (09:27→21:04)
[2016-12-07] MEDS: SODIUM CHLORIDE 0.9% FLUSH 10 ML FLUSH IV FLUSH SCH ×2 (09:27→21:04)
[2016-12-07] MEDS: PANTOPRAZOLE SODIUM 40 MG VIAL IV PUSH SCH (09:27)
[2016-12-07] MEDS: POTASSIUM CHLOR 10 MEQ PREMIX 100 ML IV SCH ×3 (09:27→17:54)
[2016-12-07] MEDS ORDERED: D5-1/2 NS + KCL 20 MEQ INJ 1,000 ML IV SCH (10:54)
--- NOTE | 2016-12-07 10:57 | HHI.PR ---
Subjective Remarks Follow-up for dysphagia. The patient had EGD yesterday, he states that they found a mass in his stomach that was not limiting his food pass. Overnight he attempted clear liquid diet, and had continued vomiting with any intake. Objective Vitals Vital Signs Date Time Temp Pulse Resp B/P Pulse Ox O2 Delivery O2 Flow Rate FiO2 12/07/16 08:27 97.5 72 20 164/85 93 12/07/16 00:00 97.2 56 20 129/69 94 12/06/16 19:25 98.5 73 18 137/64 97 12/06/16 15:25 55 16 104/63 94 12/06/16 15:15 56 16 97/61 97 12/06/16 15:05 97.4 59 16 108/63 97 12/06/16 14:30 97.5 58 18 148/72 96 12/06/16 11:08 97.5 56 18 148/72 96 I/O 12/06/16 12/06/16 12/06/16 12/07/16 12/07/16 12/07/16 07:00 15:00 23:00 07:00 15:00 23:00 Intake Total 733 ml Output Total 650 ml 200 ml 700 ml 370 ml Balance -650 ml -200 ml 33 ml -370 ml Intake IV Total 433 ml Other 300 ml Output Urine Total 650 ml 200 ml 700 ml 370 ml Result Diagram: 12/07/16 0555 12/07/16 0555 Imaging Last Impressions Cholangiopancreatography MRI 12/06/16 0000 Signed Impressions: Service Date/Time: Tuesday, December 06, 2016 17:40 - CONCLUSION: 1. Biliary ductal dilatation to 1.8 cm without evidence for choledocholithiasis or pancreatic mass. Previous cholecystectomy. No acute findings. Geraldo Whitten MD Abdomen/Pelvis CT 12/05/16 1234 Signed Impressions: Service Date/Time: Monday, December 05, 2016 14:22 - CONCLUSION: 1. No evidence of acute abdominal or pelvic process. No masses are identified. 2. Continued marked dilatation common bile duct 2 cm without evidence of stone. 3. The previously seen cyst at the tail the pancreas is no longer identified. Dony Brown MD Objective Remarks GENERAL: Well-developed fair-nourished thin pleasant elderly male. In no acute distress. SKIN: Warm and dry. No lesions noted. HEENT: Normocephalic. Pupils equal and round. Mucous membranes pink and moist. CARDIOVASCULAR: Regular rate and rhythm. No murmur appreciated. RESPIRATORY: No accessory muscle use. Clear to auscultation. Breath sounds equal bilaterally. GASTROINTESTINAL: Abdomen soft, non-tender, nondistended. Bowel sounds x4. MUSCULOSKELETAL: No obvious deformities. No clubbing or cyanosis. No edema. NEUROLOGICAL: Awake and alert. No focal neurological deficits. Moves upper and lower extremities spontaneously. Normal speech. PSYCHIATRIC: Appropriate mood and affect; insight and judgment normal. A/P Problem List: (1) Intractable nausea and vomiting ICD Code: R11.2 Status: Acute Assessment and Plan 86-year-old male with past medical history of metastatic gastric cancer, HTN presented with intractable nausea and vomiting Peritoneal carcinomatosis/metastatic gastric cancer: on chemo with intractable nausea/ vomiting. Abdominal CT shows no definite progression of patient's disease, continued dilation of the common bile duct. Patient's oncologist, Dr. Turner, consulted. Intractable nausea and vomiting: As above. GI consulted, performed EGD. EGD showed circumferential mass with possible inflammation in the gastric body causing partial obstruction and fluid retention. Not tolerating clear liquids. IVF, add D5. IV Protonix. Antiemetics as needed. Oncology has consulted surgical oncology. Will likely need alternative nutrition source. Hypokalemia: Worsening, 2.8 today. Replace orally and by IV bolus. Potassium with maintenance IVF. Magnesium within normal limits. Follow-up BMP. Hypertension: Chronic, stable. Continue home medications. Monitor. DVT prophylaxis: Lovenox pending surgery evaluation Written by Naseem Marie, acting as scribe for Dr. Murillo on 12/07/16 at 10:56. All or portions of this note were transcribed by BOLA Short. I, Dr. Ford Murillo personally performed the history, physical exam, and medical decision making; and confirmed the accuracy of the information in the transcribed note. Authenticated by Dr. Ford Murillo on 12/07/16 at 23:12. Discharge Planning Discussed the case management, admit to inpatient. Problem Qualifiers (1) Intractable nausea and vomiting: Qualified Code: R11.2 - Intractable vomiting with nausea, unspecified vomiting type Naseem Marie Dec 07, 2016 10:57 Linda Murillo DO Dec 07, 2016 23:13
--- NOTE | 2016-12-07 14:26 | PD.ONC.PN ---
Subjective Subjective Remarks Afebrile overnight. Patient complaining of vomiting without nausea, persistent. at bedside has daughter on the phone and wants to know about placing NG tube. Denies pain. Objective Data Date Time Temp Pulse Resp B/P Pulse Ox O2 Delivery O2 Flow Rate FiO2 12/07/16 11:29 97.7 65 20 138/75 95 12/07/16 08:27 97.5 72 20 164/85 93 12/07/16 00:00 97.2 56 20 129/69 94 12/06/16 19:25 98.5 73 18 137/64 97 12/06/16 15:25 55 16 104/63 94 12/06/16 15:15 56 16 97/61 97 12/06/16 15:05 97.4 59 16 108/63 97 12/06/16 14:30 97.5 58 18 148/72 96 Result Diagram: 12/07/16 0555 12/07/16 0555 Laboratory Results Laboratory Tests Test 12/07/16 05:55 White Blood Count 5.7 TH/MM3 Red Blood Count 4.67 MIL/MM3 Hemoglobin 12.5 GM/DL Hematocrit 39.3 % Mean Corpuscular Volume 84.2 FL Mean Corpuscular Hemoglobin 26.9 PG Mean Corpuscular Hemoglobin 31.9 % Concent Red Cell Distribution Width 24.9 % Platelet Count 190 TH/MM3 Mean Platelet Volume 8.3 FL Neutrophils (%) (Auto) 66.4 % Lymphocytes (%) (Auto) 18.0 % Monocytes (%) (Auto) 11.7 % Eosinophils (%) (Auto) 3.0 % Basophils (%) (Auto) 0.9 % Neutrophils # (Auto) 3.8 TH/MM3 Lymphocytes # (Auto) 1.0 TH/MM3 Monocytes # (Auto) 0.7 TH/MM3 Eosinophils # (Auto) 0.2 TH/MM3 Basophils # (Auto) 0.1 TH/MM3 CBC Comment AUTO DIFF Differential Comment AUTO DIFF CONFIRMED Platelet Estimate NORMAL Platelet Morphology Comment NORMAL Sodium Level 139 MEQ/L Potassium Level 2.8 MEQ/L Chloride Level 100 MEQ/L Carbon Dioxide Level 31.9 MEQ/L Anion Gap 7 MEQ/L Blood Urea Nitrogen 5 MG/DL Creatinine 0.35 MG/DL Estimat Glomerular Filtration 237 ML/MIN Rate Random Glucose 60 MG/DL Calcium Level 8.5 MG/DL Administered Medications Medications (Trade) Dose Ordered Sig/Karlie Route PRN Reason Start Time Stop Time Status Last Admin Dose Admin Sodium Chloride (NS Flush) 2 ml BID IV FLUSH 12/05/16 21:00 12/07/16 09:27 Ondansetron HCl (Zofran Inj) 4 mg Q6H PRN IVP NAUSEA OR VOMITING 12/05/16 15:45 12/07/16 09:26 Prochlorperazine (Compazine Supp) 25 mg Q12H PRN RECTAL N/V IF ZOFRAN DOESN'T WORK 12/05/16 15:45 12/07/16 10:26 Enoxaparin Sodium (Lovenox Inj) 40 mg Q24H SQ 12/05/16 15:45 12/06/16 16:33 Amlodipine Besylate (Norvasc) 5 mg DAILY PO 12/06/16 09:00 12/07/16 09:26 Ferrous Sulfate (Ferrous Sulfate) 325 mg DAILY PO 12/06/16 09:00 12/07/16 09:26 Metoprolol Tartrate (Lopressor) 25 mg DAILY PO 12/06/16 09:00 12/07/16 09:26 Timolol Maleate (Timoptic 0.5% Opth Soln) 1 drop BID EACH EYE 12/05/16 21:00 12/07/16 09:27 Zolpidem Tartrate (Ambien) 5 mg HS PRN PO INSOMNIA 12/05/16 23:00 12/05/16 23:09 Pantoprazole Sodium (Protonix Inj) 40 mg Q24H IV PUSH 12/06/16 11:00 12/07/16 09:27 Dorzolamide/ Timolol (Cosopt 2-0.5% Opth Soln) 1 drop BID EACH EYE 12/06/16 21:00 12/07/16 09:27 Sucralfate 1 gm 1 gm BID PO 12/06/16 21:00 12/07/16 09:26 Potassium Chloride/Dextrose/ Sod Cl (D5-1/2 NS + KCl 20 Meq Inj) 1,000 ml @ 100 mls/hr Q10H IV 12/07/16 10:54 12/07/16 10:26 Objective Remarks GENERAL: Pleasant elderly male, sitting up in bed, bucket with vomit in front of him. SKIN: Warm and dry. HEAD: Normocephalic. EYES: No injection or drainage. NECK: Supple, trachea midline. CARDIOVASCULAR: Regular rate and rhythm RESPIRATORY: Breath sounds equal bilaterally. No accessory muscle use. GASTROINTESTINAL: Abdomen soft, non-tender, nondistended. EXTREMITIES: No cyanosis NEUROLOGICAL: No obvious focal deficit. Awake, alert, and oriented x3. 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 --s/p exploratory laparotomy and during surgery the afferent loop was noted to be obstructive and he was also found to have scattered small nodules throughout the abdomen, mostly in the left upper quadrant. --Biopsy showed moderately differentiated adenocarcinoma mucinous features, thought to be gastric cancer. --later had an outpatient PET scan which showed thickened gastric wall with significant hypermetabolic uptake. --aggressive with treatment and was started on dose reduced FOLFOX chemotherapy- ->just completed a fifth cycle of chemotherapy in the middle of November. --do not think his vomiting is due to the chemotherapy. His last chemotherapy was in the middle of November. --CT abdomen did not show clear evidence of progression of disease or obstruction. Assessment 86y/o male with with metastatic gastric cancer, admitted with intractable vomiting and dehydration. h/o Coronary artery disease. Gastric ulcer. Gastroesophageal reflux disease. Gout. Hypertension. Anemia. History:--went to [place] for vacation and while over there he started developing vomiting. no nausea, he will throw up a short while after he eats. He was not able to keep any liquid or solid food down for several days. Dr. Turner saw him in the clinic, he appeared dehydrated. He was directed to go to the emergency room. Plan 1. consult surgery (Adria) 2. start TPN tonight 3. supportive care 4. I called and spoke with Kimberly the patient's daughter and updated her on his progress and our plans to start TPN and told her I would update her again tomorrow-->[phone] Attending Statement The exam, history, and the medical decision-making described in the above note were completed with the assistance of the mid-level provider. I reviewed and agree with the findings presented. I attest that I had a [id number] encounter with the patient on the same day, and personally performed and documented my assessment and findings in the medical record. Still not able to keep any food down. Discussed with . Pt appear to have obstruction. Mucosa was friable and was biopsy, path pending. Consult to see if he is a candidate for gastric bypass or placement of ?J -tube for feeding. Start TPN for now. Vikki Tirado Dec 07, 2016 14:26 Ren Turner MD Dec 07, 2016 15:49 He was directed to go to the emergency room. He denies any abdominal pain. He has no fever or chills. He was gaining weight while he was on chemotherapy but now started losing weight again. Denies any chest pain, palpitations, any shortness of breath or cough. Vikki Tirado Dec 07, 2016 14:26
--- NOTE | 2016-12-07 16:58 | HHI.GIFU ---
Subjective Remarks Resting in bed. States he has nausea, controlled at this time. Unable to eat anything. (Adrianna Hector) Objective Vitals I&O Vital Signs Date Time Temp Pulse Resp B/P Pulse Ox O2 Delivery O2 Flow Rate FiO2 12/07/16 15:36 98.0 65 20 127/66 95 12/07/16 15:29 98 21 12/07/16 11:29 97.7 65 20 138/75 95 12/07/16 08:27 97.5 72 20 164/85 93 12/07/16 00:00 97.2 56 20 129/69 94 12/06/16 19:25 98.5 73 18 137/64 97 I/O 12/06/16 12/06/16 12/06/16 12/07/16 12/07/16 12/07/16 07:00 15:00 23:00 07:00 15:00 23:00 Intake Total 733 ml Output Total 650 ml 200 ml 700 ml 370 ml Balance -650 ml -200 ml 33 ml -370 ml Intake IV Total 433 ml Other 300 ml Output Urine Total 650 ml 200 ml 700 ml 370 ml Laboratory Laboratory Tests Test 12/07/16 05:55 White Blood Count 5.7 Red Blood Count 4.67 Hemoglobin 12.5 Hematocrit 39.3 Mean Corpuscular Volume 84.2 Mean Corpuscular Hemoglobin 26.9 Mean Corpuscular Hemoglobin 31.9 Concent Red Cell Distribution Width 24.9 Platelet Count 190 Mean Platelet Volume 8.3 Neutrophils (%) (Auto) 66.4 Lymphocytes (%) (Auto) 18.0 Monocytes (%) (Auto) 11.7 Eosinophils (%) (Auto) 3.0 Basophils (%) (Auto) 0.9 Neutrophils # (Auto) 3.8 Lymphocytes # (Auto) 1.0 Monocytes # (Auto) 0.7 Eosinophils # (Auto) 0.2 Basophils # (Auto) 0.1 CBC Comment AUTO DIFF Differential Comment AUTO DIFF CONFIRMED Platelet Estimate NORMAL Platelet Morphology Comment NORMAL Sodium Level 139 Potassium Level 2.8 Chloride Level 100 Carbon Dioxide Level 31.9 Anion Gap 7 Blood Urea Nitrogen 5 Creatinine 0.35 Estimat Glomerular Filtration 237 Rate Random Glucose 60 Calcium Level 8.5 Imaging Last Impressions Cholangiopancreatography MRI 12/06/16 0000 Signed Impressions: Service Date/Time: Tuesday, December 06, 2016 17:40 - CONCLUSION: 1. Biliary ductal dilatation to 1.8 cm without evidence for choledocholithiasis or pancreatic mass. Previous cholecystectomy. No acute findings. Geraldo Whitten MD Abdomen/Pelvis CT 12/05/16 1234 Signed Impressions: Service Date/Time: Monday, December 05, 2016 14:22 - CONCLUSION: 1. No evidence of acute abdominal or pelvic process. No masses are identified. 2. Continued marked dilatation common bile duct 2 cm without evidence of stone. 3. The previously seen cyst at the tail the pancreas is no longer identified. Dony Brown MD Physical Exam HEENT: Normocephalic; atraumatic; no jaundice. CHEST: CTA CARDIAC: RRR ABDOMEN: Soft, nondistended, nontender; no hepatosplenomegaly; bowel sounds are present in all four quadrants. EXTREMITIES: No clubbing, cyanosis, or edema. SKIN: Generalized pallor. 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 (Adrianna Hector) Assessment and Plan Plan ASSESSMENT: - Nausea and vomiting. Hx metastatic gastric ca, pt last had chemo 2-3 weeks ago, being followed by oncology. Abdomen/Pelvis CT (12/05/16)----> 1. No evidence of acute abdominal or pelvic process. No masses are identified. 2. Continued marked dilatation common bile duct 2 cm without evidence of stone. 3. The previously seen cyst at the tail the pancreas is no longer identified. S/P EGD (12/06/16)- --> 1. Circumferential mass, ? inflammation in the gastric body, causing partial obstruction. Food/ liquid retained above this area up into the esophagus. This was suctioned 2. Retroflexed views revealed no abnormalities. Unable to take po. He has port and TPN has been ordered. GS following, ? candidate for gastric bypass or placement of J-tube for feeding. - Elevated LFTs. MRCP (12/06/16)---> 1. Biliary ductal dilatation to 1.8 cm without evidence for choledocholithiasis or pancreatic mass. Previous cholecystectomy. Stable. - Anemia. 12.5/39.3. - Hypokalemia. per primary. 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 Last chemotherapy was in the middle of November. Oncology following. PLAN: - NPO - Await pathology - PPI - TPN ordered - Monitor labs - GS following, ? candidate for bypass, J tube placement - Supportive care - Further recommendations to follow based on results of above - Pt seen and examined by Dr. Hurtado and myself and this note is written on his behalf (Adrianna Hector) Physician Comments Seen and examined, s/p egd with biopsy. Almost complete gastric obstruction. Discussed with Dr. Murillo , Johnny and Adria. surgical J tube planned next week. ? egd /stent depending upon biopsies, although doubt very much this can be done given the appearance of his stomach. Maybe canbe referred to [place] to consider his option. Will sign off, reconsult as needed. Thank you. (Day Hurtado MD) Adrianna Hector Dec 07, 2016 16:58 Day Hurtado MD Dec 07, 2016 19:38
[2016-12-07] MEDS: ENOXAPARIN SODIUM 40 MG/0.4 ML SYRINGE SQ SCH (17:54)
[2016-12-07] MEDS ORDERED: CLINIMIX 5/25 (Custom) 2000 mL- >42 mls/hr IV-CENTRAL SCH ×9 (20:00)
[2016-12-07] MEDS: FAT EMULSION 20% INJ 250 ML (Daily over 8 hours) IV-CENTRAL SCH (22:13)
[2016-12-07] MEDS: CLINIMIX E 5/25 2000 mL- >42 mls/hr IV-CENTRAL SCH ×3 (22:13)
[2016-12-08] VITALS (8 sets, daily range): BP systolic 99–140; BP diastolic 57–71; PULSE 52–69; RESP 15–20; TEMP 96.7–97.8; O2SAT 95–99
[2016-12-08] MEDS ORDERED: ALUMINUM/MAGNESIUM/SIMETH 30 ML CUP PO ONE (04:15)
[2016-12-08 07:57] LABS: BICARBONATE 30.4 MEQ/L (21.0-32.0); MAGNESIUM 1.7 MG/DL (1.5-2.5)
[2016-12-08 08:03] LABS: POTASSIUM 2.9 MEQ/L (3.5-5.1)
[2016-12-08] MEDS ORDERED: MAGNESIUM SULFATE 1 GM PREMIX 100 ML IV ONE (09:00)
[2016-12-08] MEDS: TIMOLOL MALEATE 0.5% OPHT SOLN 5 ML BTL EACH EYE SCH ×2 (09:00→21:08)
[2016-12-08] MEDS: SUCRALFATE 1 GM/10 ML CUP PO SCH ×2 (10:03→21:08)
[2016-12-08] MEDS: SODIUM CHLORIDE 0.9% FLUSH 10 ML FLUSH IV FLUSH SCH ×2 (10:03→21:11)
[2016-12-08] MEDS: amLODIPine BESYLATE 5 MG TAB PO SCH (10:03)
[2016-12-08] MEDS: METOPROLOL TARTRATE 25 MG TAB PO SCH (10:03)
[2016-12-08] MEDS: FERROUS SULFATE 325 MG (65 MG ELEMENTAL IRON) TAB PO SCH (10:03)
[2016-12-08] MEDS: DORZOLAMIDE/TIMOLOL OPTH SOLN 10 ML BTL EACH EYE SCH ×2 (10:04→21:09)
[2016-12-08] MEDS: PANTOPRAZOLE SODIUM 40 MG VIAL IV PUSH SCH (11:06)
[2016-12-08] MEDS: POTASSIUM CHLOR 20 MEQ PREMIX 100 ML IV SCH ×2 (12:12→14:03)
--- NOTE | 2016-12-08 12:14 | PD.ONC.PN ---
Subjective Subjective Remarks Afebrile overnight. patient denies further vomiting. Denies pain. States he slept well overnight. Objective Data Date Time Temp Pulse Resp B/P Pulse Ox O2 Delivery O2 Flow Rate FiO2 12/08/16 10:05 95 21 12/08/16 08:00 97.7 69 18 129/71 97 12/08/16 04:00 97.7 65 16 140/67 96 12/08/16 00:00 96.7 67 15 115/69 98 12/07/16 22:38 96.8 56 15 143/68 96 12/07/16 20:25 98.7 87 18 143/72 94 12/07/16 20:00 94 12/07/16 15:36 98.0 65 20 127/66 95 12/07/16 15:29 98 21 Result Diagram: 12/07/16 0555 12/08/16 0557 Laboratory Results Laboratory Tests Test 12/08/16 05:57 Sodium Level 137 MEQ/L Potassium Level 2.9 MEQ/L Chloride Level 99 MEQ/L Carbon Dioxide Level 30.4 MEQ/L Anion Gap 8 MEQ/L Blood Urea Nitrogen 9 MG/DL Creatinine 0.45 MG/DL Estimat Glomerular Filtration 178 ML/MIN Rate Random Glucose 226 MG/DL Calcium Level 8.1 MG/DL Phosphorus Level 2.1 MG/DL Magnesium Level 1.7 MG/DL Administered Medications Medications (Trade) Dose Ordered Sig/Karlie Route PRN Reason Start Time Stop Time Status Last Admin Dose Admin Sodium Chloride (NS Flush) 2 ml BID IV FLUSH 12/05/16 21:00 12/08/16 10:03 Ondansetron HCl (Zofran Inj) 4 mg Q6H PRN IVP NAUSEA OR VOMITING 12/05/16 15:45 12/07/16 09:26 Prochlorperazine (Compazine Supp) 25 mg Q12H PRN RECTAL N/V IF ZOFRAN DOESN'T WORK 12/05/16 15:45 12/07/16 10:26 Enoxaparin Sodium (Lovenox Inj) 40 mg Q24H SQ 12/05/16 15:45 12/07/16 17:54 Amlodipine Besylate (Norvasc) 5 mg DAILY PO 12/06/16 09:00 12/08/16 10:03 Ferrous Sulfate (Ferrous Sulfate) 325 mg DAILY PO 12/06/16 09:00 12/08/16 10:03 Metoprolol Tartrate (Lopressor) 25 mg DAILY PO 12/06/16 09:00 12/08/16 10:03 Timolol Maleate (Timoptic 0.5% Opth Soln) 1 drop BID EACH EYE 12/05/16 21:00 12/07/16 21:04 Zolpidem Tartrate (Ambien) 5 mg HS PRN PO INSOMNIA 12/05/16 23:00 12/05/16 23:09 Pantoprazole Sodium (Protonix Inj) 40 mg Q24H IV PUSH 12/06/16 11:00 12/08/16 11:06 Dorzolamide/ Timolol (Cosopt 2-0.5% Opth Soln) 1 drop BID EACH EYE 12/06/16 21:00 12/08/16 10:04 Sucralfate 1 gm 1 gm BID PO 12/06/16 21:00 12/08/16 10:03 Fat Emulsion Intravenous 250 ml @ 31.25 mls/ hr Q24H IV-CENTRAL 12/07/16 20:00 12/07/16 22:13 Multivitamins/ Folic Acid/Amino Acids/ Electrolytes/ Dextrose (Mvi-12 Inj/ Folvite Inj/ Clinimix E 01/25) 2,010.2 ml @ 75 mls/hr Q24H IV-CENTRAL 12/07/16 20:00 12/07/16 22:13 Objective Remarks GENERAL: Pleasant elderly male, sitting up in bed in nad SKIN: Warm and dry. HEAD: Normocephalic. EYES: No injection or drainage. NECK: Supple, trachea midline. CARDIOVASCULAR: Regular rate and rhythm RESPIRATORY: Breath sounds equal bilaterally. No accessory muscle use. GASTROINTESTINAL: Abdomen soft, non-tender, nondistended. EXTREMITIES: No cyanosis NEUROLOGICAL: awake and alert, normal speech. moving extremities. 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 --s/p exploratory laparotomy and during surgery the afferent loop was noted to be obstructive and he was also found to have scattered small nodules throughout the abdomen, mostly in the left upper quadrant. --Biopsy showed moderately differentiated adenocarcinoma mucinous features, thought to be gastric cancer. --later had an outpatient PET scan which showed thickened gastric wall with significant hypermetabolic uptake. --aggressive with treatment and was started on dose reduced FOLFOX chemotherapy- ->just completed a fifth cycle of chemotherapy in the middle of November. --do not think his vomiting is due to the chemotherapy. His last chemotherapy was in the middle of November. --CT abdomen did not show clear evidence of progression of disease or obstruction. Assessment 86y/o male with with metastatic gastric cancer, admitted with intractable vomiting and dehydration. h/o Coronary artery disease. Gastric ulcer. Gastroesophageal reflux disease. Gout. Hypertension. Anemia. History:--went to [place] for vacation and while over there he started developing vomiting. no nausea, he will throw up a short while after he eats. He was not able to keep any liquid or solid food down for several days. Dr. Turner saw him in the clinic, he appeared dehydrated. He was directed to go to the emergency room. Plan 1. continue TPN 2. monitor electrolytes 3. await surgical oncology consult Attending Statement The exam, history, and the medical decision-making described in the above note were completed with the assistance of the mid-level provider. I reviewed and agree with the findings presented. I attest that I had a [id number] encounter with the patient on the same day, and personally performed and documented my assessment and findings in the medical record. Feels better with TPN. Gastric biopsy no malignancy. The obstruction likely extrinsic compression. Prognosis is poor. His cancer is progressing while on chemotherapy. Exp lap planned and feeding tube placement planned next week. Will discuss hospice care after we get more info from the exp lap. Continue TPN for now. Vikki Tirado Dec 08, 2016 12:14 Ren Turner MD Dec 08, 2016 18:50
[2016-12-08] MEDS ORDERED: ONDA1TAB17 PO (14:11)
[2016-12-08] MEDS ORDERED: AMLO5TAB2 PO (14:11)
[2016-12-08] MEDS ORDERED: DORZ2SOL15 EACH EYE (14:11)
[2016-12-08] MEDS ORDERED: PRIL20CA9 PO (14:11)
[2016-12-08] MEDS ORDERED: METO-309 PO (14:11)
[2016-12-08] MEDS ORDERED: FISHCAP4 PO (14:11)
[2016-12-08] MEDS ORDERED: MULTTAB67 PO (14:11)
[2016-12-08] MEDS ORDERED: ASPI81CH37 CHEW (14:11)
[2016-12-08] MEDS ORDERED: PROC10TA PO (14:11)
--- NOTE | 2016-12-08 14:49 | MB ---
cc: GEREMIAS WELCH DATE OF CONSULTATION: 12/07/2016. REASON FOR CONSULTATION: Gastric obstruction and stage IV gastric adenocarcinoma. REQUESTING CONSULTATION: BOLA Ruthreford. HISTORY OF PRESENT ILLNESS: The patient is an 86-year-old male who presented with history of Billroth II surgery and underwent revision approximately one year ago. 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 The patient had a revision of his of biliary limb to a Shakila-en-Y which was able to give him normal digestion which he recovered from well. Unfortunately the patient did progress on chemotherapy and developed increasing obstruction due to his tumor of his alimentary limb. The patient was admitted to [facility] with vomiting of nonbilious and unable to tolerate p.o. The patient last had chemotherapy approximately two weeks ago. The patient underwent imaging and this showed some thickening of the gastric wall with no acute process. Surgical oncology is requested to evaluate the patient for consideration of palliative bypass versus feeding tube for supportive care. REVIEW OF SYSTEMS: A twelve-point review of systems was gone over with the patient and is negative except for the pertinent positives mentioned above in the history of present illness. PAST MEDICAL HISTORY: 1. Metastatic gastric cancer as above. 2. Coronary artery disease. 3. History of peptic ulcer disease. 4. Gastroesophageal reflux disease (GERD). 5. Gout. 6. Hypertension. 7. Anemia. PAST SURGICAL HISTORY: 1. Previous antrectomy and Billroth II previous revision to a Shakila-en-Y. 2. Aortic valve replacement. 3. Cholecystectomy. 4. Port placement. 5. Multiple endoscopies. 6. Cataract surgery. SOCIAL HISTORY: The patient has a history of tobacco and quit in 1965. Denies alcohol use. ALLERGIES: NO KNOWN DRUG ALLERGIES. MEDICATIONS: 1. Potassium. 2. Magnesium. 3. TPN. 4. Cosopt Ophthalmic Solution. 5. Carafate. 6. Protonix. 7. Norvasc. 8. Iron. 9. Lopressor. 10. Ambien. FAMILY HISTORY: Noncontributory. PHYSICAL EXAMINATION: VITAL SIGNS: Temperature 98.0 degrees, pulse 65, blood pressure 127/66, 02 saturation 95%. GENERAL: The patient is a chronically ill-appearing thin cachectic elderly male in no acute distress. HEAD, EYES, EARS, NOSE, THROAT: Head is normocephalic and atraumatic. Pupils are round and reactive to light. The sclerae are anicteric. NECK: The neck is supple. No jugular venous distention. LUNGS: Breath sounds present bilaterally. Nonlabored breathing pattern. HEART: Regular rate and rhythm. ABDOMEN: Abdomen soft and nondistended, scaphoid. No organomegaly. No ascites. EXTREMITIES: No cyanosis, clubbing or edema. BACK: No costovertebral angle tenderness. NEUROLOGIC: The patient is alert and oriented times four. A nonfocal peripheral exam. Cranial nerves II through XII are grossly intact. ASSESSMENT: The patient is an 86-year-old male with likely gastric outlet obstruction to gastric cancer of the area of his alimentary limb. Based on the patient's known carcinomatosis and debilitated state and due to the significant thickening of the stomach wall, I think it is very unlikely to safely and successfully perform any palliative procedure on this patient to allow him to eat normally. I do think it is reasonable to consider diagnostic laparoscopy to evaluate for this. Also I believe it is reasonable to consider a feeding tube. I did discuss with the patient and his family about a feeding tube would give him nutritional support that would likely just prolong life but would not prove quality of life and to consider palliative and hospice as a viable option considering his debilitated state at this time. He states that he understands and would like to continue to pursue aggressive therapy at this time. I did discuss this patient with Dr. Hurtado of gastroenterology who feels that the patient is not a good candidate for a palliative stent, at least at this point in time. Thank you very much for this consultation. I am going to follow along with the patient. We will likely proceed with a staging laparoscopy and possible feeding tube placement early next week. MD JASSON Riojas/QUINN /9:49 AM /2:28 PM MTDD
--- NOTE | 2016-12-08 16:30 | HHI.PR ---
Subjective Remarks Follow up for dysphagia, gastric cancer. The patient reports continued dysphagia. He did not sleep well last night, requesting sleep aid. He is tolerating TPN. Not tolerating any oral intake. No fevers/chills overnight. No other medical complaints at this time. Objective Vitals Vital Signs Date Time Temp Pulse Resp B/P Pulse Ox O2 Delivery O2 Flow Rate FiO2 12/08/16 12:00 97.5 52 20 133/61 99 12/08/16 10:05 95 21 12/08/16 08:00 97.7 69 18 129/71 97 12/08/16 04:00 97.7 65 16 140/67 96 12/08/16 00:00 96.7 67 15 115/69 98 12/07/16 22:38 96.8 56 15 143/68 96 12/07/16 20:25 98.7 87 18 143/72 94 12/07/16 20:00 94 I/O 12/07/16 12/07/16 12/07/16 12/08/16 12/08/16 12/08/16 07:00 15:00 23:00 07:00 15:00 23:00 Intake Total 150 ml Output Total 370 ml Balance -370 ml 150 ml Intake Oral 50 ml IV Total 100 ml Output Urine Total 370 ml Result Diagram: 12/07/16 0555 12/08/16 0557 Imaging Last Impressions Cholangiopancreatography MRI 12/06/16 0000 Signed Impressions: Service Date/Time: Tuesday, December 06, 2016 17:40 - CONCLUSION: 1. Biliary ductal dilatation to 1.8 cm without evidence for choledocholithiasis or pancreatic mass. Previous cholecystectomy. No acute findings. Geraldo Whitten MD Abdomen/Pelvis CT 12/05/16 1234 Signed Impressions: Service Date/Time: Monday, December 05, 2016 14:22 - CONCLUSION: 1. No evidence of acute abdominal or pelvic process. No masses are identified. 2. Continued marked dilatation common bile duct 2 cm without evidence of stone. 3. The previously seen cyst at the tail the pancreas is no longer identified. Dony Brown MD Objective Remarks GENERAL: Well-developed thin pleasant elderly male patient in [facility]. SKIN: Warm and dry. No lesions noted. HEENT: Normocephalic. Pupils equal and round. Mucous membranes pink and moist. CARDIOVASCULAR: Regular rate and rhythm. Systolic murmur appreciated. RESPIRATORY: No accessory muscle use. Clear to auscultation. Breath sounds equal bilaterally. GASTROINTESTINAL: Abdomen soft, non-tender, nondistended. Bowel sounds x4. MUSCULOSKELETAL: No obvious deformities. No clubbing or cyanosis. No edema. NEUROLOGICAL: Awake and alert. No focal neurological deficits. Moves upper and lower extremities spontaneously. Normal speech. PSYCHIATRIC: Appropriate mood and affect; insight and judgment normal. Medications and IVs Current Medications Medications (Trade) Dose Ordered Sig/Karlie Route Start Time Stop Time Status Last Admin (NS Flush) 2 ml UNSCH PRN IV FLUSH 12/05/16 15:45 (NS Flush) 2 ml BID IV FLUSH 12/05/16 21:00 12/08/16 10:03 (Tylenol) 650 mg Q4H PRN PO 12/05/16 15:45 (Zofran Inj) 4 mg Q6H PRN IVP 12/05/16 15:45 12/07/16 09:26 (Compazine Supp) 25 mg Q12H PRN RECTAL 12/05/16 15:45 12/07/16 10:26 (Lovenox Inj) 40 mg Q24H SQ 12/05/16 15:45 12/07/16 17:54 (Norvasc) 5 mg DAILY PO 12/06/16 09:00 12/08/16 10:03 (Ferrous Sulfate) 325 mg DAILY PO 12/06/16 09:00 12/08/16 10:03 (Lopressor) 25 mg DAILY PO 12/06/16 09:00 12/08/16 10:03 (Timoptic 0.5% Opth Soln) 1 drop BID EACH EYE 12/05/16 21:00 12/07/16 21:04 (Ambien) 5 mg HS PRN PO 12/05/16 23:00 12/05/16 23:09 (Protonix Inj) 40 mg Q24H IV PUSH 12/06/16 11:00 12/08/16 11:06 (Cosopt 2-0.5% Opth Soln) 1 drop BID EACH EYE 12/06/16 21:00 12/08/16 10:04 Sucralfate 1 gm 1 gm BID PO 12/06/16 21:00 12/08/16 10:03 Fat Emulsion Intravenous 250 ml @ 31.25 mls/ hr Q24H IV-CENTRAL 12/07/16 20:00 12/07/16 22:13 (Mvi-12 Inj/ Folvite Inj/ Clinimix E 01/25) 2,010.2 ml @ 75 mls/hr Q24H IV-CENTRAL 12/07/16 20:00 12/07/16 22:13 Urinary Catheter: No Vascular Central Line Catheter: No A/P Problem List: (1) Intractable nausea and vomiting ICD Code: R11.2 Status: Acute Assessment and Plan 86-year-old male with past medical history of metastatic gastric cancer, HTN presented with intractable nausea and vomiting Peritoneal carcinomatosis/metastatic gastric cancer: on chemo with intractable nausea/ vomiting, however oncology does not believe this is related to chemo as last chemo was mid-November. Abdominal CT shows no definite progression of patient 's disease, continued dilation of the common bile duct. Patient's oncologist, Dr. Turner, consulted, appreciated recommendations. Intractable nausea and vomiting: As above. GI consulted, performed EGD which showed circumferential mass with possible inflammation in the gastric body causing partial obstruction and fluid retention. Not tolerating clear liquids. IVF. IV Protonix. Antiemetics as needed. Started on TPN. Oncology has consulted general surgery, patient wants aggressive care at this time, seen by Dr. Covington, may proceed with staging laparoscopy next week. Hypokalemia/Hypomagnesemia: Worsening. K 3.1 --> 2.8 --> 2.9 today. Replace with IV KCl boluses. Potassium with maintenance IVF. Mag 1.7, give IV Mag Sulfate. Follow-up BMP in am. Hypertension: Chronic, stable. Continue home medications. Monitor. DVT prophylaxis: Lovenox Written by Shobha Schwartz, acting as scribe for Dr. Murillo on 12/08/16 at 15:45. All or portions of this note were transcribed by rossibBOLA Mora. I , Dr. Ford Murillo personally performed the history, physical exam, and medical decision making; and confirmed the accuracy of the information in the transcribed note. Authenticated by Dr. Ford Murillo on 12/08/16 at 17:32. Problem Qualifiers (1) Intractable nausea and vomiting: Qualified Code: R11.2 - Intractable vomiting with nausea, unspecified vomiting type Shobha Schwartz PA-C Dec 08, 2016 4:30 pm Linda Murillo DO Dec 08, 2016 5:32 pm
[2016-12-08] MEDS: ENOXAPARIN SODIUM 40 MG/0.4 ML SYRINGE SQ SCH (16:38)
[2016-12-08] MEDS: CLINIMIX E 5/25 2000 mL- >42 mls/hr IV-CENTRAL SCH ×3 (21:11)
[2016-12-08] MEDS: FAT EMULSION 20% INJ 250 ML (Daily over 8 hours) IV-CENTRAL SCH (21:11)
[2016-12-08] MEDS: TEMAZEPAM 15 MG CAP PO PRN (21:21)
[2016-12-09] VITALS (7 sets, daily range): BP systolic 81–134; BP diastolic 51–63; PULSE 62–66; RESP 16–20; TEMP 95.9–99.5; O2SAT 96–99
--- NOTE | 2016-12-09 08:36 | PD.ONC.PN ---
Subjective Subjective Remarks Afebrile overnight. Pt resting in bed without complaint. He is nervous about the findings when he has an exploratory laparotomy next week. Denies nausea, pain, or SOB. Objective Data Date Time Temp Pulse Resp B/P Pulse Ox O2 Delivery O2 Flow Rate FiO2 12/09/16 04:00 95.9 64 16 111/55 98 12/09/16 00:00 96.6 66 16 96/55 96 12/08/16 20:00 96.7 56 15 99/57 98 12/08/16 18:02 99 21 12/08/16 16:00 97.8 57 18 132/70 99 12/08/16 12:00 97.5 52 20 133/61 99 12/08/16 10:05 95 21 Result Diagram: 12/07/16 0555 12/08/16 0557 Administered Medications Medications (Trade) Dose Ordered Sig/Karlie Route PRN Reason Start Time Stop Time Status Last Admin Dose Admin Sodium Chloride (NS Flush) 2 ml BID IV FLUSH 12/05/16 21:00 12/08/16 21:11 Ondansetron HCl (Zofran Inj) 4 mg Q6H PRN IVP NAUSEA OR VOMITING 12/05/16 15:45 12/07/16 09:26 Prochlorperazine (Compazine Supp) 25 mg Q12H PRN RECTAL N/V IF ZOFRAN DOESN'T WORK 12/05/16 15:45 12/07/16 10:26 Enoxaparin Sodium (Lovenox Inj) 40 mg Q24H SQ 12/05/16 15:45 12/08/16 16:38 Amlodipine Besylate (Norvasc) 5 mg DAILY PO 12/06/16 09:00 12/08/16 10:03 Ferrous Sulfate (Ferrous Sulfate) 325 mg DAILY PO 12/06/16 09:00 12/08/16 10:03 Metoprolol Tartrate (Lopressor) 25 mg DAILY PO 12/06/16 09:00 12/08/16 10:03 Timolol Maleate (Timoptic 0.5% Opt Soln) 1 drop BID EACH EYE 12/05/16 21:00 12/07/16 21:04 Pantoprazole Sodium (Protonix Inj) 40 mg Q24H IV PUSH 12/06/16 11:00 12/08/16 11:06 Dorzolamide/ Timolol (Cosopt 2-0.5% Opth Soln) 1 drop BID EACH EYE 12/06/16 21:00 12/08/16 21:09 Sucralfate 1 gm 1 gm BID PO 12/06/16 21:00 12/08/16 21:08 Fat Emulsion Intravenous 250 ml @ 31.25 mls/ hr Q24H IV-CENTRAL 12/07/16 20:00 12/08/16 21:11 Multivitamins/ Folic Acid/Amino Acids/ Electrolytes/ Dextrose (Mvi-12 Inj/ Folvite Inj/ Clinimix E 01/25) 2,010.2 ml @ 75 mls/hr Q24H IV-CENTRAL 12/07/16 20:00 12/08/16 21:11 Temazepam (Restoril) 15 mg HS PRN PO INSOMNIA 12/08/16 17:15 12/08/16 21:21 Objective Remarks GENERAL: Pleasant elderly male, resting in bed in NAD SKIN: Warm and dry. Port in place to L chest asymptomatic. HEAD: Normocephalic. EYES: No injection or drainage. NECK: Supple, trachea midline. CARDIOVASCULAR: +S1/S2. RESPIRATORY: Breath sounds equal bilaterally. No accessory muscle use. GASTROINTESTINAL: Abdomen soft, non-tender, nondistended. EXTREMITIES: No cyanosis NEUROLOGICAL: awake and alert, normal speech. moving extremities. 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 --s/p exploratory laparotomy and during surgery the afferent loop was noted to be obstructive and he was also found to have scattered small nodules throughout the abdomen, mostly in the left upper quadrant. --Biopsy showed moderately differentiated adenocarcinoma mucinous features, thought to be gastric cancer. --later had an outpatient PET scan which showed thickened gastric wall with significant hypermetabolic uptake. --aggressive with treatment and was started on dose reduced FOLFOX chemotherapy- ->just completed a fifth cycle of chemotherapy in the middle of November. --do not think his vomiting is due to the chemotherapy. His last chemotherapy was in the middle of November. --CT abdomen did not show clear evidence of progression of disease or obstruction. Assessment 86y/o male with with metastatic gastric cancer, admitted with intractable vomiting and dehydration. h/o Coronary artery disease. Gastric ulcer. Gastroesophageal reflux disease. Gout. Hypertension. Anemia. History:--went to [place] for vacation and while over there he started developing vomiting. no nausea, he will throw up a short while after he eats. He was not able to keep any liquid or solid food down for several days. Dr. Turner saw him in the clinic, he appeared dehydrated. He was directed to go to the emergency room. Plan 1. Dr Covington in to see pt; will likely do a staging laparoscopy and a possible feeding tube placement next week. 2. He is debilitated and frail. Currently on TPN. 3. Continue to monitor electrolytes, supportive care. 4. Plan to have a family meeting on Sunday. Attending Statement The exam, history, and the medical decision-making described in the above note were completed with the assistance of the mid-level provider. I reviewed and agree with the findings presented. I attest that I had a [id number] encounter with the patient on the same day, and personally performed and documented my assessment and findings in the medical record. Pt seen and examined. Sitting quietly with looking out the window. Denies any pain. No vomiting for now. Pending discussion w/ Dr. Turner regarding next course of treatment. Continue support. Gabby Boles Dec 09, 2016 08:36 Gabrielle Mccray MD Dec 09, 2016 13:26
[2016-12-09] MEDS: TIMOLOL MALEATE 0.5% OPHT SOLN 5 ML BTL EACH EYE SCH ×2 (09:00→21:00)
[2016-12-09] MEDS: FERROUS SULFATE 325 MG (65 MG ELEMENTAL IRON) TAB PO SCH (09:33)
[2016-12-09] MEDS: DORZOLAMIDE/TIMOLOL OPTH SOLN 10 ML BTL EACH EYE SCH ×2 (09:33→21:13)
[2016-12-09] MEDS: amLODIPine BESYLATE 5 MG TAB PO SCH (09:33)
[2016-12-09] MEDS: PANTOPRAZOLE SODIUM 40 MG VIAL IV PUSH SCH (09:33)
[2016-12-09] MEDS: METOPROLOL TARTRATE 25 MG TAB PO SCH (09:33)
[2016-12-09] MEDS: SUCRALFATE 1 GM/10 ML CUP PO SCH ×2 (09:33→21:14)
[2016-12-09] MEDS: SODIUM CHLORIDE 0.9% FLUSH 10 ML FLUSH IV FLUSH SCH ×2 (09:34→21:14)
--- NOTE | 2016-12-09 09:41 | HHI.PR ---
Subjective Remarks Follow up for dysphagia, gastric cancer. The patient reports continued dysphagia , unchanged. He is able to tolerate sips of water. Denies any significant pain. He slept well last night with the Restoril, would like to continue. He has no other medical complaints at this time. Objective Vitals Vital Signs Date Time Temp Pulse Resp B/P Pulse Ox O2 Delivery O2 Flow Rate FiO2 12/09/16 07:50 96.1 65 20 132/63 99 12/09/16 04:00 95.9 64 16 111/55 98 12/09/16 00:00 96.6 66 16 96/55 96 12/08/16 20:00 96.7 56 15 99/57 98 12/08/16 18:02 99 21 12/08/16 16:00 97.8 57 18 132/70 99 12/08/16 12:00 97.5 52 20 133/61 99 12/08/16 10:05 95 21 I/O 12/08/16 12/08/16 12/08/16 12/09/16 12/09/16 12/09/16 07:00 15:00 23:00 07:00 15:00 23:00 Intake Total 480 ml 720 ml 850 ml Output Total 450 ml 200 ml Balance 30 ml 720 ml 650 ml Intake Oral 480 ml 120 ml TPN/PPN 600 ml 600 ml Lipid 250 ml Output Urine Total 450 ml 200 ml # Voids 2 Result Diagram: 12/07/16 0555 12/08/16 0557 Imaging Last Impressions Cholangiopancreatography MRI 12/06/16 0000 Signed Impressions: Service Date/Time: Tuesday, December 06, 2016 17:40 - CONCLUSION: 1. Biliary ductal dilatation to 1.8 cm without evidence for choledocholithiasis or pancreatic mass. Previous cholecystectomy. No acute findings. Geraldo Whitten MD Abdomen/Pelvis CT 12/05/16 1234 Signed Impressions: Service Date/Time: Monday, December 05, 2016 14:22 - CONCLUSION: 1. No evidence of acute abdominal or pelvic process. No masses are identified. 2. Continued marked dilatation common bile duct 2 cm without evidence of stone. 3. The previously seen cyst at the tail the pancreas is no longer identified. Dony Brown MD Objective Remarks GENERAL: Well-developed thin pleasant elderly male patient in [place]. SKIN: Warm and dry. No lesions noted. HEENT: Normocephalic. Pupils equal and round. Mucous membranes pink and moist. CARDIOVASCULAR: Regular rate and rhythm. Systolic murmur appreciated. RESPIRATORY: No accessory muscle use. Clear to auscultation. Breath sounds equal bilaterally. GASTROINTESTINAL: Abdomen soft, non-tender, nondistended. Bowel sounds x4. MUSCULOSKELETAL: No obvious deformities. No clubbing or cyanosis. No edema. NEUROLOGICAL: Awake and alert. No focal neurological deficits. Moves upper and lower extremities spontaneously. Normal speech. PSYCHIATRIC: Appropriate mood and affect; insight and judgment normal. Medications and IVs Current Medications Medications (Trade) Dose Ordered Sig/Karlie Route Start Time Stop Time Status Last Admin (NS Flush) 2 ml UNSCH PRN IV FLUSH 12/05/16 15:45 (NS Flush) 2 ml BID IV FLUSH 12/05/16 21:00 12/09/16 09:34 (Tylenol) 650 mg Q4H PRN PO 12/05/16 15:45 (Zofran Inj) 4 mg Q6H PRN IVP 12/05/16 15:45 12/07/16 09:26 (Compazine Supp) 25 mg Q12H PRN RECTAL 12/05/16 15:45 12/07/16 10:26 (Lovenox Inj) 40 mg Q24H SQ 12/05/16 15:45 12/08/16 16:38 (Norvasc) 5 mg DAILY PO 12/06/16 09:00 12/09/16 09:33 (Ferrous Sulfate) 325 mg DAILY PO 12/06/16 09:00 12/09/16 09:33 (Lopressor) 25 mg DAILY PO 12/06/16 09:00 12/09/16 09:33 (Timoptic 0.5% Opth Soln) 1 drop BID EACH EYE 12/05/16 21:00 12/07/16 21:04 (Protonix Inj) 40 mg Q24H IV PUSH 12/06/16 11:00 12/09/16 09:33 (Cosopt 2-0.5% Opth Soln) 1 drop BID EACH EYE 12/06/16 21:00 12/09/16 09:33 Sucralfate 1 gm 1 gm BID PO 12/06/16 21:00 12/09/16 09:33 Fat Emulsion Intravenous 250 ml @ 31.25 mls/ hr Q24H IV-CENTRAL 12/07/16 20:00 12/08/16 21:11 (Mvi-12 Inj/ Folvite Inj/ Clinimix E 01/25) 2,010.2 ml @ 75 mls/hr Q24H IV-CENTRAL 12/07/16 20:00 12/08/16 21:11 (Restoril) 15 mg HS PRN PO 12/08/16 17:15 12/08/16 21:21 A/P Problem List: (1) Intractable nausea and vomiting ICD Code: R11.2 Status: Acute Assessment and Plan 86-year-old male with past medical history of metastatic gastric cancer, HTN presented with intractable nausea and vomiting Peritoneal carcinomatosis/metastatic gastric cancer: on chemo with intractable nausea/ vomiting, however oncology does not believe this is related to chemo as last chemo was mid-November. Abdominal CT shows no definite progression of patient 's disease, continued dilation of the common bile duct. Patient's oncologist, Dr. Turner, consulted, appreciated recommendations. Although patient wants aggressive care, options are limited, will consult palliative care for further assistance. Intractable nausea and vomiting: As above. GI consulted, performed EGD which showed circumferential mass with possible inflammation in the gastric body causing partial obstruction and fluid retention. Not tolerating clear liquids. IVF. IV Protonix. Antiemetics as needed. Started on TPN. Oncology has consulted general surgery, seen by Dr. Covington, may proceed with staging laparoscopy next week. Hypokalemia/Hypomagnesemia: Worsening. K 3.1 --> 2.8 --> 2.9. Replaced with IV KCl boluses. Potassium with maintenance IVF. Mag 1.7, give IV Mag Sulfate. Follow-up BMP today, pending. Hypertension: Chronic, stable. Continue home medications. Monitor. Insomnia: patient reports difficulty sleeping in the hospital. Started on Restoril 15mg hs, responded well, will continue. DVT prophylaxis: Lovenox Written by Shobha Schwartz, acting as scribe for Dr. Murillo on 12/09/16 at 09:35. All or portions of this note were transcribed by scribe BOLA Noble. I , Dr. Ford Murillo personally performed the history, physical exam, and medical decision making; and confirmed the accuracy of the information in the transcribed note. Authenticated by Dr. Ford Murillo on 12/09/16 at 20:57. Problem Qualifiers (1) Intractable nausea and vomiting: Qualified Code: R11.2 - Intractable vomiting with nausea, unspecified vomiting type Shobha Schwartz PA-C Dec 09, 2016 09:41 Linda Murillo DO Dec 09, 2016 20:57
[2016-12-09 10:36] LABS: AUTOMATED NEUTROPHIL # 10.6 TH/MM3 (1.8-7.7); BASOPHIL # 0.1 TH/MM3 (0-0.2); BASOPHIL % 0.6 % (0.0-2.0); EOSINOPHIL # 0.1 TH/MM3 (0-0.4); HEMATOCRIT 38.7 % (39.0-51.0); HEMO FLAGS DIFF FINAL; LYMPH % 5.1 % (9.0-44.0); LYMPHOCYTE # 0.6 TH/MM3 (1.0-4.8); MEAN CELL VOLUME 83.7 FL (80.0-100.0); MEAN CORPUSCULAR HGB CONC 33.4 % (32.0-36.0); MONO % 6.3 % (0.0-8.0); PLATELET COUNT 178 TH/MM3 (150-450); RED BLOOD COUNT 4.62 MIL/MM3 (4.50-5.90); RED CELL DISTRIBUTION WIDTH 24.1 % (11.6-17.2); WHITE BLOOD COUNT 12.2 TH/MM3 (4.0-11.0)
[2016-12-09 11:03] LABS: ALKALINE PHOSPHATASE 65 U/L (45-117); ALT (GPT) 13 U/L (12-78); ANION GAP 6 MEQ/L (5-15); AST (GOT) 24 U/L (15-37); BLOOD UREA NITROGEN 17 MG/DL (7-18); CHLORIDE 99 MEQ/L (98-107); GLOMERULAR FILTRATION RATE 203 ML/MIN (>89); POTASSIUM 3.5 MEQ/L (3.5-5.1); SODIUM (NA) 137 MEQ/L (136-145); TOTAL BILIRUBIN ADULT 0.4 MG/DL (0.2-1.0)
[2016-12-09 14:26] LABS: MAGNESIUM 1.8 MG/DL (1.5-2.5)
[2016-12-09] MEDS: ENOXAPARIN SODIUM 40 MG/0.4 ML SYRINGE SQ SCH (15:50)
[2016-12-09] MEDS: CLINIMIX E 5/25 2000 mL- >42 mls/hr IV-CENTRAL SCH ×3 (21:12)
[2016-12-09] MEDS: FAT EMULSION 20% INJ 250 ML (Daily over 8 hours) IV-CENTRAL SCH (21:12)
[2016-12-09] MEDS: TEMAZEPAM 15 MG CAP PO PRN (21:22)
[2016-12-09] MEDS: PSEUDOEPHEDRINE HCL 30 MG TAB PO PRN (21:27)
[2016-12-10] VITALS: BP 98/57; PULSE 69; RESP 19; TEMP 96.9; O2SAT 96
[2016-12-10 04:00] VITALS: BP 95/56; PULSE 70; RESP 19; TEMP 96.9; O2SAT 93
[2016-12-10 07:50] VITALS: BP 107/58; PULSE 62; RESP 20; TEMP 96.5; O2SAT 96
[2016-12-10] MEDS: SUCRALFATE 1 GM/10 ML CUP PO SCH ×2 (08:51→21:37)
[2016-12-10] MEDS: FERROUS SULFATE 325 MG (65 MG ELEMENTAL IRON) TAB PO SCH (08:51)
--- NOTE | 2016-12-10 08:51 | PD.ONC.PN ---
Subjective Subjective Remarks Afebrile overnight. Pt resting in bed watching TV in no distress. He tells me he slept great. Denies nausea. No other complaints. Objective Data Date Time Temp Pulse Resp B/P Pulse Ox O2 Delivery O2 Flow Rate FiO2 12/10/16 04:00 96.9 70 19 95/56 93 12/10/16 00:00 96.9 69 19 98/57 96 12/09/16 22:05 21 12/09/16 21:30 65 99/56 12/09/16 20:25 96.5 66 17 81/51 96 12/09/16 15:30 97.8 62 20 101/56 98 12/09/16 11:54 99.5 65 20 134/60 98 Result Diagram: 12/09/16 1017 12/09/16 1017 Laboratory Results Laboratory Tests Test 12/09/16 10:17 White Blood Count 12.2 TH/MM3 Red Blood Count 4.62 MIL/MM3 Hemoglobin 12.9 GM/DL Hematocrit 38.7 % Mean Corpuscular Volume 83.7 FL Mean Corpuscular Hemoglobin 28.0 PG Mean Corpuscular Hemoglobin 33.4 % Concent Red Cell Distribution Width 24.1 % Platelet Count 178 TH/MM3 Mean Platelet Volume 7.7 FL Neutrophils (%) (Auto) 87.0 % Lymphocytes (%) (Auto) 5.1 % Monocytes (%) (Auto) 6.3 % Eosinophils (%) (Auto) 1.0 % Basophils (%) (Auto) 0.6 % Neutrophils # (Auto) 10.6 TH/MM3 Lymphocytes # (Auto) 0.6 TH/MM3 Monocytes # (Auto) 0.8 TH/MM3 Eosinophils # (Auto) 0.1 TH/MM3 Basophils # (Auto) 0.1 TH/MM3 CBC Comment DIFF FINAL Differential Comment Sodium Level 137 MEQ/L Potassium Level 3.5 MEQ/L Chloride Level 99 MEQ/L Carbon Dioxide Level 32.0 MEQ/L Anion Gap 6 MEQ/L Blood Urea Nitrogen 17 MG/DL Creatinine 0.40 MG/DL Estimat Glomerular Filtration 203 ML/MIN Rate Random Glucose 122 MG/DL Calcium Level 8.1 MG/DL Phosphorus Level 1.6 MG/DL Magnesium Level 1.8 MG/DL Total Bilirubin 0.4 MG/DL Aspartate Amino Transf 24 U/L (AST/SGOT) Alanine Aminotransferase 13 U/L (ALT/SGPT) Alkaline Phosphatase 65 U/L Total Protein 5.4 GM/DL Albumin 2.5 GM/DL Administered Medications Medications (Trade) Dose Ordered Sig/Karlie Route PRN Reason Start Time Stop Time Status Last Admin Dose Admin Sodium Chloride (NS Flush) 2 ml BID IV FLUSH 12/05/16 21:00 12/09/16 21:14 Acetaminophen (Tylenol) 650 mg Q4H PRN PO TEMP > 100.4 12/05/16 15:45 12/09/16 15:53 Ondansetron HCl (Zofran Inj) 4 mg Q6H PRN IVP NAUSEA OR VOMITING 12/05/16 15:45 12/07/16 09:26 Prochlorperazine (Compazine Supp) 25 mg Q12H PRN RECTAL N/V IF ZOFRAN DOESN'T WORK 12/05/16 15:45 12/07/16 10:26 Enoxaparin Sodium (Lovenox Inj) 40 mg Q24H SQ 12/05/16 15:45 12/09/16 15:50 Amlodipine Besylate (Norvasc) 5 mg DAILY PO 12/06/16 09:00 12/09/16 09:33 Ferrous Sulfate (Ferrous Sulfate) 325 mg DAILY PO 12/06/16 09:00 12/09/16 09:33 Metoprolol Tartrate (Lopressor) 25 mg DAILY PO 12/06/16 09:00 12/09/16 09:33 Timolol Maleate (Timoptic 0.5% Opth Soln) 1 drop BID EACH EYE 12/05/16 21:00 12/07/16 21:04 Pantoprazole Sodium (Protonix Inj) 40 mg Q24H IV PUSH 12/06/16 11:00 12/09/16 09:33 Dorzolamide/ Timolol (Cosopt 2-0.5% Opth Soln) 1 drop BID EACH EYE 12/06/16 21:00 12/09/16 21:13 Sucralfate 1 gm 1 gm BID PO 12/06/16 21:00 12/09/16 21:14 Fat Emulsion Intravenous 250 ml @ 31.25 mls/ hr Q24H IV-CENTRAL 12/07/16 20:00 12/09/16 21:12 Multivitamins/ Folic Acid/Amino Acids/ Electrolytes/ Dextrose (Mvi-12 Inj/ Folvite Inj/ Clinimix E 01/25) 2,010.2 ml @ 75 mls/hr Q24H IV-CENTRAL 12/07/16 20:00 12/09/16 21:12 Temazepam (Restoril) 15 mg HS PRN PO INSOMNIA 12/08/16 17:15 12/09/16 21:22 Pseudoephedrine HCl (Sudafed) 30 mg Q6H PRN PO Ear fullness 12/09/16 16:30 12/09/16 21:27 Objective Remarks GENERAL: Pleasant elderly male, resting in bed in NAD SKIN: Warm and dry. Port in place to L chest asymptomatic. HEAD: Normocephalic. EYES: +Exophthalmos NECK: Supple, trachea midline. CARDIOVASCULAR: +S1/S2. RESPIRATORY: Breath sounds equal bilaterally. No accessory muscle use. GASTROINTESTINAL: Abdomen soft, non-tender, nondistended. EXTREMITIES: No cyanosis NEUROLOGICAL: Awake and alert, normal speech. moving extremities. 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 --s/p exploratory laparotomy and during surgery the afferent loop was noted to be obstructive and he was also found to have scattered small nodules throughout the abdomen, mostly in the left upper quadrant. --Biopsy showed moderately differentiated adenocarcinoma mucinous features, thought to be gastric cancer. --later had an outpatient PET scan which showed thickened gastric wall with significant hypermetabolic uptake. --aggressive with treatment and was started on dose reduced FOLFOX chemotherapy- ->just completed a fifth cycle of chemotherapy in the middle of November. --do not think his vomiting is due to the chemotherapy. His last chemotherapy was in the middle of November. --CT abdomen did not show clear evidence of progression of disease or obstruction. Assessment 86y/o male with with metastatic gastric cancer, admitted with intractable vomiting and dehydration. h/o Coronary artery disease. Gastric ulcer. Gastroesophageal reflux disease. Gout. Hypertension. Anemia. History:--went to [place] for vacation and while over there he started developing vomiting. no nausea, he will throw up a short while after he eats. He was not able to keep any liquid or solid food down for several days. Dr. Turner saw him in the clinic, he appeared dehydrated. He was directed to go to the emergency room. Plan 1. Monitor electrolytes 2. Continue TPN 3. Possible staging laparoscopy and TF placement next week 4. Plan to have a family meeting on Sunday Attending Statement The exam, history, and the medical decision-making described in the above note were completed with the assistance of the mid-level provider. I reviewed and agree with the findings presented. I attest that I had a [id number] encounter with the patient on the same day, and personally performed and documented my assessment and findings in the medical record. Pt seen and examined. c/o of stuffy L ear, trying to see if it will open up chewing gum. Anti histamine available prn. TPN on going. Pain controlled. Gabby Boles Dec 10, 2016 08:51 Gabrielle Mccray MD Dec 10, 2016 17:20
[2016-12-10] MEDS: DORZOLAMIDE/TIMOLOL OPTH SOLN 10 ML BTL EACH EYE SCH ×2 (08:53→21:40)
[2016-12-10] MEDS: TIMOLOL MALEATE 0.5% OPHT SOLN 5 ML BTL EACH EYE SCH ×2 (08:53→21:00)
[2016-12-10] MEDS: SODIUM CHLORIDE 0.9% FLUSH 10 ML FLUSH IV FLUSH SCH ×2 (08:54→21:42)
[2016-12-10] MEDS: METOPROLOL TARTRATE 25 MG TAB PO SCH (09:00)
[2016-12-10] MEDS: PANTOPRAZOLE SODIUM 40 MG VIAL IV PUSH SCH (09:04)
[2016-12-10 11:50] VITALS: BP 136/62; PULSE 64; RESP 20; TEMP 97.9; O2SAT 98
--- NOTE | 2016-12-10 14:01 | HHI.PR ---
Subjective Remarks Follow up for dysphagia, gastric cancer. The patient reports sleeping well again last night after taking Restoril. He has continued dysphagia. Denies any pain. Denies any new medical complaints at this time. Objective Vitals Vital Signs Date Time Temp Pulse Resp B/P Pulse Ox O2 Delivery O2 Flow Rate FiO2 12/10/16 11:50 97.9 64 20 136/62 98 12/10/16 07:50 96.5 62 20 107/58 96 12/10/16 04:00 96.9 70 19 95/56 93 12/10/16 00:00 96.9 69 19 98/57 96 12/09/16 22:05 21 12/09/16 21:30 65 99/56 12/09/16 20:25 96.5 66 17 81/51 96 12/09/16 15:30 97.8 62 20 101/56 98 I/O 12/09/16 12/09/16 12/09/16 12/10/16 12/10/16 12/10/16 07:00 15:00 23:00 07:00 15:00 23:00 Intake Total 850 ml 60 ml 1207 ml 60 ml Output Total 200 ml 400 ml 500 ml 200 ml Balance 650 ml -340 ml 707 ml -140 ml Intake Oral 60 ml 120 ml 60 ml TPN/PPN 600 ml 1087 ml Lipid 250 ml Output Urine Total 200 ml 400 ml 500 ml 200 ml # Bowel Movements 1 2 Result Diagram: 12/09/16 1017 12/09/16 1017 Imaging Last Impressions Cholangiopancreatography MRI 12/06/16 0000 Signed Impressions: Service Date/Time: Tuesday, December 06, 2016 17:40 - CONCLUSION: 1. Biliary ductal dilatation to 1.8 cm without evidence for choledocholithiasis or pancreatic mass. Previous cholecystectomy. No acute findings. Geraldo Whitten MD Abdomen/Pelvis CT 12/05/16 1234 Signed Impressions: Service Date/Time: Monday, December 05, 2016 14:22 - CONCLUSION: 1. No evidence of acute abdominal or pelvic process. No masses are identified. 2. Continued marked dilatation common bile duct 2 cm without evidence of stone. 3. The previously seen cyst at the tail the pancreas is no longer identified. Dony Brown MD Objective Remarks GENERAL: Well-developed thin pleasant elderly male patient in NAD. SKIN: Warm and dry. No lesions noted. HEENT: Normocephalic. Pupils equal and round. Mucous membranes pink and moist. CARDIOVASCULAR: Regular rate and rhythm. Systolic murmur appreciated. RESPIRATORY: No accessory muscle use. Clear to auscultation. Breath sounds equal bilaterally. GASTROINTESTINAL: Abdomen soft, non-tender, nondistended. Bowel sounds x4. MUSCULOSKELETAL: No obvious deformities. No clubbing or cyanosis. No edema. NEUROLOGICAL: Awake and alert. No focal neurological deficits. Moves upper and lower extremities spontaneously. Normal speech. PSYCHIATRIC: Appropriate mood and affect; insight and judgment normal. Medications and IVs Current Medications Medications (Trade) Dose Ordered Sig/Karlie Route Start Time Stop Time Status Last Admin (NS Flush) 2 ml UNSCH PRN IV FLUSH 12/05/16 15:45 (NS Flush) 2 ml BID IV FLUSH 12/05/16 21:00 12/10/16 08:54 (Tylenol) 650 mg Q4H PRN PO 12/05/16 15:45 12/09/16 15:53 (Zofran Inj) 4 mg Q6H PRN IVP 12/05/16 15:45 12/07/16 09:26 (Compazine Supp) 25 mg Q12H PRN RECTAL 12/05/16 15:45 12/07/16 10:26 (Lovenox Inj) 40 mg Q24H SQ 12/05/16 15:45 12/09/16 15:50 (Norvasc) 5 mg DAILY PO 12/06/16 09:00 12/09/16 09:33 (Ferrous Sulfate) 325 mg DAILY PO 12/06/16 09:00 12/10/16 08:51 (Lopressor) 25 mg DAILY PO 12/06/16 09:00 12/09/16 09:33 (Timoptic 0.5% Opth Soln) 1 drop BID EACH EYE 12/05/16 21:00 12/07/16 21:04 (Protonix Inj) 40 mg Q24H IV PUSH 12/06/16 11:00 12/10/16 09:04 (Cosopt 2-0.5% Opth Soln) 1 drop BID EACH EYE 12/06/16 21:00 12/10/16 08:53 Sucralfate 1 gm 1 gm BID PO 12/06/16 21:00 12/10/16 08:51 Fat Emulsion Intravenous 250 ml @ 31.25 mls/ hr Q24H IV-CENTRAL 12/07/16 20:00 12/09/16 21:12 (Mvi-12 Inj/ Folvite Inj/ Clinimix E 01/25) 2,010.2 ml @ 75 mls/hr Q24H IV-CENTRAL 12/07/16 20:00 12/09/16 21:12 (Restoril) 15 mg HS PRN PO 12/08/16 17:15 12/09/16 21:22 (Sudafed) 30 mg Q6H PRN PO 12/09/16 16:30 12/09/16 21:27 A/P Problem List: (1) Intractable nausea and vomiting ICD Code: R11.2 Status: Acute Assessment and Plan 86-year-old male with past medical history of metastatic gastric cancer, HTN presented with intractable nausea and vomiting Peritoneal carcinomatosis/metastatic gastric cancer: on chemo with intractable nausea/ vomiting, however oncology does not believe this is related to chemo as last chemo was mid-November. Abdominal CT shows no definite progression of patient 's disease, continued dilation of the common bile duct. Patient's oncologist, Dr. Turner, consulted, appreciated recommendations. Although patient wants aggressive care, options are limited, will consult palliative care for further assistance. Plan for family meeting tomorrow. Intractable nausea and vomiting: As above. GI consulted, performed EGD which showed circumferential mass with possible inflammation in the gastric body causing partial obstruction and fluid retention. Not tolerating clear liquids. IVF. IV Protonix. Antiemetics as needed. Started on TPN. Oncology has consulted general surgery, seen by Dr. Covington, may proceed with staging laparoscopy next week. Hypokalemia/Hypomagnesemia: Worsening. K 3.1 --> 2.8 --> 2.9. Replaced with IV KCl boluses. Potassium with maintenance IVF. Mag 1.7, give IV Mag Sulfate. Repeat K 3.5, Mag 1.8. Continue to monitor. Hypertension: Chronic, stable. Continue home medications. Monitor. Insomnia: patient reports difficulty sleeping in the hospital. Started on Restoril 15mg hs, responded well, will continue. DVT prophylaxis: Lovenox Written by Shobha Schwartz, acting as scribe for Dr. Murillo on 12/10/16 at 12:30. All or portions of this note were transcribed by scribe BOLA Noble. I , Dr. Ford Murillo personally performed the history, physical exam, and medical decision making; and confirmed the accuracy of the information in the transcribed note. Authenticated by Dr. Ford Murillo on 12/10/16 at 22:15. Problem Qualifiers (1) Intractable nausea and vomiting: Qualified Code: R11.2 - Intractable vomiting with nausea, unspecified vomiting type Shobha Schwartz PA-C Dec 10, 2016 14:01 Linda Murillo DO Dec 10, 2016 22:15
[2016-12-10] MEDS: PSEUDOEPHEDRINE HCL 30 MG TAB PO PRN (14:19)
[2016-12-10] MEDS: amLODIPine BESYLATE 5 MG TAB PO SCH (14:19)
[2016-12-10 14:50] LABS: BICARBONATE 31.3 MEQ/L (21.0-32.0); MAGNESIUM 1.9 MG/DL (1.5-2.5); POTASSIUM 3.4 MEQ/L (3.5-5.1)
[2016-12-10] MEDS: ENOXAPARIN SODIUM 40 MG/0.4 ML SYRINGE SQ SCH (15:42)
[2016-12-10 15:50] VITALS: BP 115/56; PULSE 69; RESP 20; TEMP 96.8; O2SAT 96
[2016-12-10] MEDS ORDERED: POTASSIUM CHLOR 20 MEQ PREMIX 100 ML IV ONE (18:00)
[2016-12-10 20:00] VITALS: BP 107/65; PULSE 91; RESP 18; TEMP 97.4; O2SAT 95
[2016-12-10] MEDS: FAT EMULSION 20% INJ 250 ML (Daily over 8 hours) IV-CENTRAL SCH (21:37)
[2016-12-10] MEDS: CLINIMIX E 5/25 2000 mL- >42 mls/hr IV-CENTRAL SCH ×3 (21:39)
[2016-12-10] MEDS: TEMAZEPAM 15 MG CAP PO PRN (23:00)
[2016-12-11] VITALS: BP 100/58; PULSE 72; RESP 19; TEMP 98.2; O2SAT 97
[2016-12-11 04:00] VITALS: BP 111/59; PULSE 68; RESP 19; TEMP 97; O2SAT 97
[2016-12-11 07:03] LABS: AUTOMATED NEUTROPHIL # 6.3 TH/MM3 (1.8-7.7); BASOPHIL % 0.5 % (0.0-2.0); EOSINOPHIL # 0.3 TH/MM3 (0-0.4); EOSINOPHIL % 3.6 % (0.0-4.0); HEMATOCRIT 31.8 % (39.0-51.0); LYMPH % 13.1 % (9.0-44.0); LYMPHOCYTE # 1.1 TH/MM3 (1.0-4.8); MEAN CELL VOLUME 84.2 FL (80.0-100.0); MEAN CORPUSCULAR HEMOGLOBIN 27.9 PG (27.0-34.0); MEAN CORPUSCULAR HGB CONC 33.2 % (32.0-36.0); MONO % 10.4 % (0.0-8.0); NEUT % 72.4 % (16.0-70.0); PLATELET COUNT 153 TH/MM3 (150-450); RED BLOOD COUNT 3.78 MIL/MM3 (4.50-5.90); RED CELL DISTRIBUTION WIDTH 24.6 % (11.6-17.2); WHITE BLOOD COUNT 8.8 TH/MM3 (4.0-11.0)
[2016-12-11 07:09] LABS: ANION GAP 9 MEQ/L (5-15); AST (GOT) 24 U/L (15-37); BICARBONATE 27.3 MEQ/L (21.0-32.0); BLOOD UREA NITROGEN 20 MG/DL (7-18); CHLORIDE 102 MEQ/L (98-107); GLOMERULAR FILTRATION RATE 245 ML/MIN (>89); POTASSIUM 3.8 MEQ/L (3.5-5.1); SODIUM (NA) 138 MEQ/L (136-145)
[2016-12-11 07:12] LABS: ALKALINE PHOSPHATASE 64 U/L (45-117); ALT (GPT) 15 U/L (12-78); TOTAL BILIRUBIN ADULT 0.3 MG/DL (0.2-1.0)
[2016-12-11 07:30] LABS: HEMO FLAGS AUTO DIFF
[2016-12-11 08:00] VITALS: BP 103/55; PULSE 82; RESP 16; TEMP 97; O2SAT 98
[2016-12-11 08:11] LABS: HELMET CELLS OCC (NORMAL); KERATOCYTES OCC (NORMAL); OVALOCYTES 1+ (NORMAL)
[2016-12-11 08:12] LABS: PLATELET ESTIMATE SMEAR NORMAL (NORMAL); PLATELET MORPHOLOGY NORMAL (NORMAL); SCAN/DIFF AUTO DIFF CONFIRMED
[2016-12-11] MEDS: FERROUS SULFATE 325 MG (65 MG ELEMENTAL IRON) TAB PO SCH (08:39)
[2016-12-11] MEDS: SUCRALFATE 1 GM/10 ML CUP PO SCH ×2 (08:39→21:20)
[2016-12-11] MEDS: DORZOLAMIDE/TIMOLOL OPTH SOLN 10 ML BTL EACH EYE SCH ×2 (08:40→21:19)
[2016-12-11] MEDS: SODIUM CHLORIDE 0.9% FLUSH 10 ML FLUSH IV FLUSH SCH ×2 (08:47→21:00)
[2016-12-11] MEDS: TIMOLOL MALEATE 0.5% OPHT SOLN 5 ML BTL EACH EYE SCH ×2 (08:47→21:00)
[2016-12-11] MEDS: METOPROLOL TARTRATE 25 MG TAB PO SCH (09:00)
[2016-12-11] MEDS: amLODIPine BESYLATE 5 MG TAB PO SCH (09:00)
[2016-12-11] MEDS: PANTOPRAZOLE SODIUM 40 MG VIAL IV PUSH SCH (10:50)
--- NOTE | 2016-12-11 11:25 | PD.CONS ---
Consult Service Palliative Care . Consult Requested By Dr. Murillo . Primary Care Physician Andrew Shoemaker MD . Reason for Consultation a. To assist with evaluation and management of symptoms including: Intractable nausea and vomiting, pain, weakness b. To assist medical decision maker(s) with: better understanding of current medical conditions; weighing benefits/burdens of medical treatment options; making medical treatment decisions. . (Chloe Jeronimo) HPI History of Present Illness Patient presented to [facility] ED on 12/05/16 for evaluation of a five-day history of nausea and vomiting and weakness. Patient was diagnosed with gastric adenocarcinoma in May,. He is currently undergoing chemotherapy for his cancer. Patient reported he had his last chemotherapy approximately 2 weeks prior and always experiences some post chemotherapy nausea and vomiting but not as severe. Per patient he had been unable to keep any fluids or solids down. He was taking antiemetics at home with no relief. Dr. Turner, the patient' s oncologist, directed him to come to the ED for evaluation. Patient reported dark stools at baseline because he takes iron some movements for his chronic anemia. Patient denied blood from the rectum or hematemesis. Additional diagnostic findings include: * Vital signs: Pulse 62, respirations 15, BP 148/80, oxygen saturation 97% on room air, oral temperature 98.3 * WBC: 9.0, hemoglobin 12.9, hematocrit 39.3, platelets 229, neutrophils 70.1% * Sodium: 143, potassium 3.3, chloride 101, carbon dioxide 35.6, glucose 100, calcium 9.4 * BUN: 12, creatinine 0.56, GFR 138 * Lactic acid: 1.5 * Total bilirubin: 0.5, AST 44, ALT 22, alkaline phosphatase 76 * Total protein: 6.9, albumin 3.3 * Lipase: 73 * Urinalysis normal * CT abdomen: Showed no evidence of acute abdominal or pelvic process, no masses are identified. Continued marked dilatation common bile duct 2 cm without evidence of stone. Labs and imaging were essentially unremarkable. Patient is slightly anemic, but this appears to be his baseline. Patient was subsequently admitted for further evaluation and medical management of intractable nausea and vomiting. Mr. 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 During the surgery the patient was also found to have scattered small nodules throughout the abdomen, mostly in the LUQ. A biopsy showed moderately differentiated adenocarcinoma with mucinous features, thought to be gastric cancer. An outpatient PET scan showed thickened gastric wall with significant hypermetabolic uptake. Patient wanted to be pursue aggressive treatment and was started on reduced dose FOLFOX chemotherapy. He competed his fifth cycle in mid November,. Abdominal CT on admission, showed no definite disease progression, continued dilatation of the common bile duct. Gastroenterology was consulted for evaluation of intractable nausea, vomiting, dysphagia, and weight loss. Patient reporting symptoms were gradual, occurring with heavy or fatty foods. Patient endorses mild RUQ tenderness with palpation. = EGD with biopsy on 12/05/16 showed circumferential mass with possible inflammation in the gastric body causing partial obstruction and fluid retention. = Biopsy results were negative for Helicobacter, fragments of fibrin debris containing chronic inflammatory cells and bacteria were noted. = MRCP showing biliary ductal dilatation to 1.8 cm without evidence for choledocholithiasis or pancreatic mass. Patient not tolerating oral intake, started on TPN. Surgical oncology was consulted to evaluate the patient for palliative bypass vs. feeding tube placement. Based on the patient's known carcinomatosis, dilatated state and significant thickening of the stomach wall, Dr. Covington did not think the patient was a candidate for any palliative procedure to allow him to eat normally. He felt it was reasonable to consider a diagnostic laparoscopy and consider feeding tube placement. The option of feeding tube placement for nutritional support was discussed with the patient and family. Dr. Covington explained that placing a feeding tube may prolong the patient's life, but it would not improve quality of life and consideration of hospice would be an appropriate choice at this time. The patient verbalized his understanding, but his goals remain aggressive at this time. Dr. Kline, gastroenterology, as the patient is not a candidate for palliative stent at this time. Possible staging laparoscopy and feeding tube placement later this week. Palliative Care was consulted to assist with symptom management and to discuss with the patient/family the benefits and burdens of his current illnesses and the options regarding future care. . Function/Cognitive Trajectory Patient was diagnosed with gastric adenocarcinoma in May,. Patient unable to tolerate oral nutrition secondary to tumors/partial obstruction, currently on TPN. Reporting increased weakness and weight loss since being diagnosed last May. Patient is no longer a candidate for chemotherapy secondary to debilitation/disease progression. . . 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 Past Surgical History Aortic valve replacement Cholecystectomy Antrectomy Vagotomy Billroth ll reconstruction Arthroscopic medial and lateral meniscectomy left knee. Cwepuy-t-Mynn placement . Reported Medications Acetaminophen 325 Mg Tab 650 Mg PO Q4H PRN Timolol Opth Drops 0.5 % Soln 1 Drop EACH EYE BID Iron (Ferrous Sulfate) 325 Mg Tab 325 Mg PO DAILY Take Norvasc (Amlodipine Besylate) 5 Mg Tab 5 Mg PO DAILY Metoprolol Tartrate 25 Mg Tab 25 Mg PO DAILY . Current Medications Medications (Trade) Dose Ordered Sig/Karlie Route Start Time Stop Time Status Last Admin (NS Flush) 2 ml UNSCH PRN IV FLUSH 12/05/16 15:45 (NS Flush) 2 ml BID IV FLUSH 12/05/16 21:00 12/11/16 08:47 (Tylenol) 650 mg Q4H PRN PO 12/05/16 15:45 12/09/16 15:53 (Zofran Inj) 4 mg Q6H PRN IVP 12/05/16 15:45 12/07/16 09:26 (Compazine Supp) 25 mg Q12H PRN RECTAL 12/05/16 15:45 12/07/16 10:26 (Lovenox Inj) 40 mg Q24H SQ 12/05/16 15:45 12/10/16 15:42 (Norvasc) 5 mg DAILY PO 12/06/16 09:00 12/10/16 14:19 (Ferrous Sulfate) 325 mg DAILY PO 12/06/16 09:00 12/11/16 08:39 (Lopressor) 25 mg DAILY PO 12/06/16 09:00 12/09/16 09:33 (Timoptic 0.5% Opth Soln) 1 drop BID EACH EYE 12/05/16 21:00 12/07/16 21:04 (Protonix Inj) 40 mg Q24H IV PUSH 12/06/16 11:00 12/10/16 09:04 (Cosopt 2-0.5% Opth Soln) 1 drop BID EACH EYE 12/06/16 21:00 12/11/16 08:40 Sucralfate 1 gm 1 gm BID PO 12/06/16 21:00 12/11/16 08:39 Fat Emulsion Intravenous 250 ml @ 31.25 mls/ hr Q24H IV-CENTRAL 12/07/16 20:00 12/10/16 21:37 (Mvi-12 Inj/ Folvite Inj/ Clinimix E 01/25) 2,010.2 ml @ 75 mls/hr Q24H IV-CENTRAL 12/07/16 20:00 12/10/16 21:39 (Restoril) 15 mg HS PRN PO 12/08/16 17:15 12/10/16 23:00 (Sudafed) 30 mg Q6H PRN PO 12/09/16 16:30 12/10/16 14:19 . Family History Family history positive for cancer (both father and sister), cholesterol and heart disease. Patient's daughter with a history of leukemia, apparently healthy at this time. . Substance Use Tobacco: Remote smoking history x 5 years, quit in 1965 Alcohol: Patient has 1 drink daily. Prescription med abuse: None known. Illicits: None known . Psychosocial History Patient completed 2 years of community college. 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 Together they have 2 adult sons and 1 daughter. Spiritual/Cultural Factors Orthodox [place] . (Chloe Jeronimo) Today's verbally stated goals: Patient verbalizing aggressive goals, however viable interventions or limited at this time. He would like to discuss with his family and consider overnight. Tentative plan to meet with Palliative Care again tomorrow. . Family/friends goals: Family verbalizes they will support patient's decision. . Ethical and Legal Issues Per [place] statutes, and absence of written advanced directives healthcare proxy decision making will fall to the patient's (Love). . (Chloe Jeronimo) Physical Exam Vital Signs Date Time Temp Pulse Resp B/P Pulse Ox O2 Delivery O2 Flow Rate FiO2 12/11/16 08:00 97.0 82 16 103/55 98 12/11/16 04:00 97.0 68 19 111/59 97 12/11/16 00:00 98.2 72 19 100/58 97 12/10/16 20:00 97.4 91 18 107/65 95 12/10/16 15:50 96.8 69 20 115/56 96 12/10/16 11:50 97.9 64 20 136/62 98 . 12/10/16 12/11/16 19:00 07:00 Intake Total 609 ml 1955 ml Output Total 350 ml 900 ml Balance 259 ml 1055 ml Intake Oral 30 ml 120 ml TPN/PPN 579 ml 1335 ml Lipid 500 ml Output Urine Total 350 ml 900 ml # Bowel Movements 0 0 . Exam CONSTITUTIONAL/GENERAL: This is a frail, elderly male patient in no acute distress. TUBES/LINES/DRAINS: Implanted VAD, PIV SKIN: No jaundice, rashes, or lesions.No wounds seen anteriorly. HEAD: Atraumatic. Normocephalic. EYES: Pupils equal and round and reactive. Extraocular motions intact. No scleral icterus. No injection or drainage. Fundi not examined. ENT: Hearing grossly normal. Nose without bleeding or purulent drainage. T NECK: Trachea midline. CARDIOVASCULAR: Regular rate and rhythm. No JVD. Peripheral pulses symmetric. RESPIRATORY/CHEST: Symmetric, unlabored respirations. Breath sounds diminished bilaterally. No wheezes, rales, or rhonchi. GASTROINTESTINAL: Abdomen soft, non-tender, nondistended. Bowel sounds present. GENITOURINARY: Without palpable bladder distension. MUSCULOSKELETAL: Extremities without clubbing, cyanosis, or edema. LYMPHATICS: No palpable cervical or supraclavicular adenopathy. NEUROLOGICAL: Awake and alert. Motor and sensory grossly within normal limits. Follows commands. Cognitively sharp. Moves all extremities. PSYCHIATRIC: No obvious anxiety/depression. no apparent hallucinations or other psychotic thought process. . (Chloe Jeronimo) Diagnostic Tests Laboratory Laboratory Tests Test 12/09/16 12/10/16 12/11/16 10:17 13:45 05:33 White Blood Count 12.2 TH/MM3 8.8 TH/MM3 (4.0-11.0) (4.0-11.0) Red Blood Count 4.62 MIL/MM3 3.78 MIL/MM3 (4.50-5.90) (4.50-5.90) Hemoglobin 12.9 GM/DL 10.6 GM/DL (13.0-17.0) (13.0-17.0) Hematocrit 38.7 % 31.8 % (39.0-51.0) (39.0-51.0) Mean Corpuscular Volume 83.7 FL 84.2 FL (80.0-100.0) (80.0-100.0) Mean Corpuscular Hemoglobin 28.0 PG 27.9 PG (27.0-34.0) (27.0-34.0) Mean Corpuscular Hemoglobin 33.4 % 33.2 % Concent (32.0-36.0) (32.0-36.0) Red Cell Distribution Width 24.1 % 24.6 % (11.6-17.2) (11.6-17.2) Platelet Count 178 TH/MM3 153 TH/MM3 (150-450) (150-450) Mean Platelet Volume 7.7 FL 8.4 FL (7.0-11.0) (7.0-11.0) Neutrophils (%) (Auto) 87.0 % 72.4 % (16.0-70.0) (16.0-70.0) Lymphocytes (%) (Auto) 5.1 % 13.1 % (9.0-44.0) (9.0-44.0) Monocytes (%) (Auto) 6.3 % (0.0-8.0) 10.4 % (0.0-8.0) Eosinophils (%) (Auto) 1.0 % (0.0-4.0) 3.6 % (0.0-4.0) Basophils (%) (Auto) 0.6 % (0.0-2.0) 0.5 % (0.0-2.0) Neutrophils # (Auto) 10.6 TH/MM3 6.3 TH/MM3 (1.8-7.7) (1.8-7.7) Lymphocytes # (Auto) 0.6 TH/MM3 1.1 TH/MM3 (1.0-4.8) (1.0-4.8) Monocytes # (Auto) 0.8 TH/MM3 0.9 TH/MM3 (0-0.9) (0-0.9) Eosinophils # (Auto) 0.1 TH/MM3 0.3 TH/MM3 (0-0.4) (0-0.4) Basophils # (Auto) 0.1 TH/MM3 0.0 TH/MM3 (0-0.2) (0-0.2) CBC Comment DIFF FINAL AUTO DIFF Differential Comment AUTO DIFF CONFIRMED Sodium Level 137 MEQ/L 138 MEQ/L 138 MEQ/L (136-145) (136-145) (136-145) Potassium Level 3.5 MEQ/L 3.4 MEQ/L 3.8 MEQ/L (3.5-5.1) (3.5-5.1) (3.5-5.1) Chloride Level 99 MEQ/L 100 MEQ/L 102 MEQ/L (98-107) (98-107) (98-107) Carbon Dioxide Level 32.0 MEQ/L 31.3 MEQ/L 27.3 MEQ/L (21.0-32.0) (21.0-32.0) (21.0-32.0) Anion Gap 6 MEQ/L (5-15) 7 MEQ/L (5-15) 9 MEQ/L (5-15) Blood Urea Nitrogen 17 MG/DL (7-18) 22 MG/DL (7-18) 20 MG/DL (7-18) Creatinine 0.40 MG/DL 0.36 MG/DL 0.34 MG/DL (0.60-1.30) (0.60-1.30) (0.60-1.30) Estimat Glomerular Filtration 203 ML/MIN 230 ML/MIN 245 ML/MIN Rate (>89) (>89) (>89) Random Glucose 122 MG/DL 110 MG/DL 98 MG/DL (74-106) (74-106) (74-106) Calcium Level 8.1 MG/DL 8.1 MG/DL 8.4 MG/DL (8.5-10.1) (8.5-10.1) (8.5-10.1) Phosphorus Level 1.6 MG/DL 2.0 MG/DL (2.5-4.9) (2.5-4.9) Magnesium Level 1.8 MG/DL 1.9 MG/DL (1.5-2.5) (1.5-2.5) Total Bilirubin 0.4 MG/DL 0.3 MG/DL (0.2-1.0) (0.2-1.0) Aspartate Amino Transf 24 U/L (15-37) 24 U/L (15-37) (AST/SGOT) Alanine Aminotransferase 13 U/L (12-78) 15 U/L (12-78) (ALT/SGPT) Alkaline Phosphatase 65 U/L (45-117) 64 U/L (45-117) Total Protein 5.4 GM/DL 4.9 GM/DL (6.4-8.2) (6.4-8.2) Albumin 2.5 GM/DL 2.1 GM/DL (3.4-5.0) (3.4-5.0) Platelet Estimate NORMAL (NORMAL) Platelet Morphology Comment NORMAL (NORMAL) Ovalocytes 1+ (NORMAL) Helmet Cells OCC (NORMAL) Keratocytes OCC (NORMAL) . (Chloe Jeronimo) Result Diagram: 12/11/16 0533 12/11/16 0533 Procedures 12/05/16: EGD with biopsy 12/06/16: MRCP . (Chloe Jeronimo) Patient/Family Conference Present at Family Conference: Met with patient and family at patient's bedside and on speaker phone. Also present Dr. Covington and Vikki PLAZA. Patient is not a candidate for further chemotherapy at this time, and any interventions would be considered palliative. Patient is considering consenting to a diagnostic laparoscopy later this week with possible feeding tube placement. Unfortunately even with supplemental nutrition, the patient's overall prognosis is poor. His life expectancy is approximately 3 months. Surgical oncology and oncology have made recommendations for comfort focused care at this time. Discussed with the family what transitioning to comfort focus care/hospice may look like. They would like to discuss and consider overnight. Palliative care will meet with the family again tomorrow. . . Family Conference Location: Bedside Issues Discussed: * Palliative care role, purpose, approach * Additional medical, psychosocial, and spiritual history * Patients general health, functional status, and cognitive changes in the months leading up to the current hospitalization * Patient/family understanding of the current medical problems * Patient/family understanding of prognosis * Patients goals of care as best understood from advance directives and/or conversations and/or values * Current medical treatment options and benefits/burdens of those options * Likely scenarios comparing ongoing aggressive care with a transition to comfort measures only * Questions answered to the best of my ability * Palliative care contact information provided . (Chloe Jeronimo) Assessment and Plan Disease Oriented Problem List: (1) Anemia (2) History of GI bleed (3) Coronary artery disease (4) Gout (5) GERD (gastroesophageal reflux disease) (6) Hypertension (7) Gastric adenocarcinoma Symptom Scale: (1) Intractable nausea and vomiting 0-10 Scale: Unable to quantify Comment: Nausea and vomiting likely secondary to disease progression, partial obstruction. Patient stating he is unable to keep anything down. Denies nausea on exam. PRN Zofran and Compazine suppositories. (2) Pain 0-10 Scale: Unable to quantify Comment: Patient currently denies pain. Potential causes of pain include disease progression, partial obstruction, potential for skin breakdown, invasive lines etc. . (3) Debility Pertinent Non-Medical Issues Psychosocial:Patient completed 2 years of community college. 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 Together they have 2 adult sons and 1 daughter. Spiritual: Orthodox [place] Legal: Per [place] statutes, in the absence of written advanced directives healthcare proxy decision making would fall to the patient's . Ethical issues impacting care: No known ethical issues impacting care at this time. . Important Contacts Love Raghu, spouse: [phone] Kimberly Frye, daughter: [phone] . Prognosis Patient was diagnosed with gastric adenocarcinoma in May,. Patient unable to tolerate oral nutrition secondary to tumors/partial obstruction, currently on TPN. Patient is not a candidate for further chemotherapy at this time, and any interventions would be considered palliative. Patient is considering consenting to a diagnostic laparoscopy later this week with possible feeding tube placement. Unfortunately even with supplemental nutrition , the patient's overall prognosis is poor. His life expectancy is approximately 3 months. Surgical oncology and oncology have made recommendations for comfort focused care at this time. Code Status: Full Code Plan * FULL CODE * Decision-making: Patient refusing to designate a health care surrogate, stating "I can make decisions". Per [place] statutes, in the absence of written advanced directives healthcare proxy decision making would fall to the patient's . * Goals: Patient continues to verbalize aggressive goals. However he is not a candidate for further chemotherapy at this time, and any interventions would be considered palliative. * Met with patient and family at patient's bedside and on speaker phone. Also present Dr. Covington and Vikki PLAZA. Patient is not a candidate for further chemotherapy at this time, and any interventions would be considered palliative. Patient is considering consenting to a diagnostic laparoscopy later this week with possible feeding tube placement. Unfortunately even with supplemental nutrition, the patient's overall prognosis is poor. His life expectancy is approximately 3 months. Surgical oncology and oncology have made recommendations for comfort focused care at this time. Discussed with the family what transitioning to comfort focus care/hospice may look like. They would like to discuss and consider overnight. Palliative care will meet with the family again tomorrow. * Symptom managementintractable nausea and vomiting: Nausea and vomiting likely secondary to disease progression, partial obstruction. Patient stating he is unable to keep anything down. Denies nausea on exam. PRN Zofran and Compazine suppositories. * Symptom managementpain: Patient currently denies pain. Potential causes of pain include disease progression, partial obstruction, potential for skin breakdown, invasive lines etc. Patient will likely require medications for pain in the future. May consider initiating 4mg dexamethasone IM/IV/PO daily peritumoral edema. * Family meeting with Dr. Covington (surgical oncology) and Vikki PLAZA. * Palliative care contact information provided to the patient and family. * Palliative care will continue to follow this patient throughout his hospitalization to establish trust, assist with symptom management and clarification of medical treatment goals. . (Chloe Jeronimo) Thank you for the opportunity to participate in the care of Mr. Krishnamurthy. (Chloe Jeronimo) Attestation To help prompt me to consider important information that might be impacting today's encounter and assessment, information from prior notes written by myself or my colleagues may have been "brought forward" into today's note. My signature on this note, however, is an attestation that I personally performed the exam, history, and/or decision-making noted today, and, unless otherwise indicated, the interactions with patient, family, and staff as well as the review of records all occurred today. I also attest that the listed assessment and stated plan reflect my best clinical judgment today based on the combination of historical information, prior notes, and today's exam/ interactions. When time spent is documented, it refers only to time spent today by the signer, or if indicated, combined time spent today by collaborating physician/nurse practitioner. . (Chloe Jeronimo) Collaborating MD Comments . Chart reviewed. Cased discussed with palliative care RECONCILIATION SPECIALIST. Above RECONCILIATION SPECIALIST note reviewed and I concur. . (French Lainez MD) Chloe Jeronimo Dec 11, 2016 11:25 French Lainez MD January 29, 2017 14:47
[2016-12-11 12:00] VITALS: BP 102/56; PULSE 75; RESP 18; TEMP 97.4; O2SAT 97
--- NOTE | 2016-12-11 12:51 | PD.ONC.PN ---
Subjective Subjective Remarks Afebrile overnight. Patient resting comfortably. Daughter and at bedside. Tolerating TPN. Objective Data Date Time Temp Pulse Resp B/P Pulse Ox O2 Delivery O2 Flow Rate FiO2 12/11/16 12:00 97.4 75 18 102/56 97 12/11/16 08:00 97.0 82 16 103/55 98 12/11/16 04:00 97.0 68 19 111/59 97 12/11/16 00:00 98.2 72 19 100/58 97 12/10/16 20:00 97.4 91 18 107/65 95 12/10/16 15:50 96.8 69 20 115/56 96 12/11/16 12/11/16 12/11/16 07:00 15:00 23:00 Intake Total 1835 ml Output Total 300 ml 225 ml Balance 1535 ml -225 ml Result Diagram: 12/11/16 0533 12/11/16 0533 Laboratory Results Laboratory Tests Test 12/10/16 12/11/16 13:45 05:33 Sodium Level 138 MEQ/L 138 MEQ/L Potassium Level 3.4 MEQ/L 3.8 MEQ/L Chloride Level 100 MEQ/L 102 MEQ/L Carbon Dioxide Level 31.3 MEQ/L 27.3 MEQ/L Anion Gap 7 MEQ/L 9 MEQ/L Blood Urea Nitrogen 22 MG/DL 20 MG/DL Creatinine 0.36 MG/DL 0.34 MG/DL Estimat Glomerular Filtration 230 ML/MIN 245 ML/MIN Rate Random Glucose 110 MG/DL 98 MG/DL Calcium Level 8.1 MG/DL 8.4 MG/DL Phosphorus Level 2.0 MG/DL Magnesium Level 1.9 MG/DL White Blood Count 8.8 TH/MM3 Red Blood Count 3.78 MIL/MM3 Hemoglobin 10.6 GM/DL Hematocrit 31.8 % Mean Corpuscular Volume 84.2 FL Mean Corpuscular Hemoglobin 27.9 PG Mean Corpuscular Hemoglobin 33.2 % Concent Red Cell Distribution Width 24.6 % Platelet Count 153 TH/MM3 Mean Platelet Volume 8.4 FL Neutrophils (%) (Auto) 72.4 % Lymphocytes (%) (Auto) 13.1 % Monocytes (%) (Auto) 10.4 % Eosinophils (%) (Auto) 3.6 % Basophils (%) (Auto) 0.5 % Neutrophils # (Auto) 6.3 TH/MM3 Lymphocytes # (Auto) 1.1 TH/MM3 Monocytes # (Auto) 0.9 TH/MM3 Eosinophils # (Auto) 0.3 TH/MM3 Basophils # (Auto) 0.0 TH/MM3 CBC Comment AUTO DIFF Differential Comment AUTO DIFF CONFIRMED Platelet Estimate NORMAL Platelet Morphology Comment NORMAL Ovalocytes 1+ Helmet Cells OCC Keratocytes OCC Total Bilirubin 0.3 MG/DL Aspartate Amino Transf 24 U/L (AST/SGOT) Alanine Aminotransferase 15 U/L (ALT/SGPT) Alkaline Phosphatase 64 U/L Total Protein 4.9 GM/DL Albumin 2.1 GM/DL Administered Medications Medications (Trade) Dose Ordered Sig/Karlie Route PRN Reason Start Time Stop Time Status Last Admin Dose Admin Sodium Chloride (NS Flush) 2 ml BID IV FLUSH 12/05/16 21:00 12/11/16 08:47 Acetaminophen (Tylenol) 650 mg Q4H PRN PO TEMP > 100.4 12/05/16 15:45 12/09/16 15:53 Ondansetron HCl (Zofran Inj) 4 mg Q6H PRN IVP NAUSEA OR VOMITING 12/05/16 15:45 12/07/16 09:26 Prochlorperazine (Compazine Supp) 25 mg Q12H PRN RECTAL N/V IF ZOFRAN DOESN'T WORK 12/05/16 15:45 12/07/16 10:26 Enoxaparin Sodium (Lovenox Inj) 40 mg Q24H SQ 12/05/16 15:45 12/10/16 15:42 Amlodipine Besylate (Norvasc) 5 mg DAILY PO 12/06/16 09:00 12/10/16 14:19 Ferrous Sulfate (Ferrous Sulfate) 325 mg DAILY PO 12/06/16 09:00 12/11/16 08:39 Metoprolol Tartrate (Lopressor) 25 mg DAILY PO 12/06/16 09:00 12/09/16 09:33 Timolol Maleate (Timoptic 0.5% Opth Soln) 1 drop BID EACH EYE 12/05/16 21:00 12/07/16 21:04 Pantoprazole Sodium (Protonix Inj) 40 mg Q24H IV PUSH 12/06/16 11:00 12/11/16 10:50 Dorzolamide/ Timolol (Cosopt 2-0.5% Opth Soln) 1 drop BID EACH EYE 12/06/16 21:00 12/11/16 08:40 Sucralfate 1 gm 1 gm BID PO 12/06/16 21:00 12/11/16 08:39 Fat Emulsion Intravenous 250 ml @ 31.25 mls/ hr Q24H IV-CENTRAL 12/07/16 20:00 12/10/16 21:37 Multivitamins/ Folic Acid/Amino Acids/ Electrolytes/ Dextrose (Mvi-12 Inj/ Folvite Inj/ Clinimix E 01/25) 2,010.2 ml @ 75 mls/hr Q24H IV-CENTRAL 12/07/16 20:00 12/10/16 21:39 Temazepam (Restoril) 15 mg HS PRN PO INSOMNIA 12/08/16 17:15 12/10/16 23:00 Pseudoephedrine HCl (Sudafed) 30 mg Q6H PRN PO Ear fullness 12/09/16 16:30 12/10/16 14:19 Objective Remarks GENERAL: Elderly male, malnourished male, sitting up in bed in nad. SKIN: Warm and dry. HEAD: Normocephalic. EYES: No injection or drainage. NECK: Supple, trachea midline. CARDIOVASCULAR: Regular rate and rhythm. RESPIRATORY: Breath sounds equal bilaterally. No accessory muscle use. GASTROINTESTINAL: Abdomen soft, non-tender, nondistended. EXTREMITIES: No cyanosis NEUROLOGICAL: No obvious focal deficit. Awake, alert, and oriented x3. 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 --s/p exploratory laparotomy and during surgery the afferent loop was noted to be obstructive and he was also found to have scattered small nodules throughout the abdomen, mostly in the left upper quadrant. --Biopsy showed moderately differentiated adenocarcinoma mucinous features, thought to be gastric cancer. --later had an outpatient PET scan which showed thickened gastric wall with significant hypermetabolic uptake. --aggressive with treatment and was started on dose reduced FOLFOX chemotherapy- ->just completed a fifth cycle of chemotherapy in the middle of November. --do not think his vomiting is due to the chemotherapy. His last chemotherapy was in the middle of November. --CT abdomen did not show clear evidence of progression of disease or obstruction. Assessment 86y/o male with with metastatic gastric cancer, admitted with intractable vomiting and dehydration. h/o Coronary artery disease. Gastric ulcer. Gastroesophageal reflux disease. Gout. Hypertension. Anemia. History:--went to [place] for vacation and while over there he started developing vomiting. no nausea, he will throw up a short while after he eats. He was not able to keep any liquid or solid food down for several days. Dr. Turner saw him in the clinic, he appeared dehydrated. He was directed to go to the emergency room. Plan 1. family meeting today Attending Statement The exam, history, and the medical decision-making described in the above note were completed with the assistance of the mid-level provider. I reviewed and agree with the findings presented. I attest that I had a [id number] encounter with the patient on the same day, and personally performed and documented my assessment and findings in the medical record. Feeling better with TPN. Has gastric obstruction likely due to progression of carcinomatosis with extrinsic compression although the CT did not show the tumor. His previous tumor was only noted during laparoscopy. Family meeting plan today to discuss the goal of his care. Vikki Tirado Dec 11, 2016 12:51 Ren Turner MD Dec 11, 2016 15:16
[2016-12-11 16:00] VITALS: BP 101/57; PULSE 77; RESP 16; TEMP 97.2; O2SAT 98
[2016-12-11] MEDS: ENOXAPARIN SODIUM 40 MG/0.4 ML SYRINGE SQ SCH (16:20)
--- NOTE | 2016-12-11 16:52 | HHI.PR ---
Subjective Remarks Follow up for dysphagia, gastric cancer. Ms. Krishnamurthy is sitting by the window. He remains pleasant. He discussed with his surgeon today. Family members at bedside. Patient has decided to go with hospice. Objective Vitals Vital Signs Date Time Temp Pulse Resp B/P Pulse Ox O2 Delivery O2 Flow Rate FiO2 12/11/16 16:00 97.2 77 16 101/57 98 12/11/16 12:00 97.4 75 18 102/56 97 12/11/16 08:00 97.0 82 16 103/55 98 12/11/16 04:00 97.0 68 19 111/59 97 12/11/16 00:00 98.2 72 19 100/58 97 12/10/16 20:00 97.4 91 18 107/65 95 I/O 12/10/16 12/10/16 12/10/16 12/11/16 12/11/16 12/11/16 07:00 15:00 23:00 07:00 15:00 23:00 Intake Total 60 ml 609 ml 120 ml 1835 ml 240 ml Output Total 200 ml 350 ml 600 ml 300 ml 325 ml Balance -140 ml 259 ml -480 ml 1535 ml -85 ml Intake Oral 60 ml 30 ml 120 ml 0 ml 240 ml TPN/PPN 579 ml 1335 ml Lipid 500 ml Output Urine Total 200 ml 350 ml 600 ml 300 ml 325 ml # Bowel Movements 2 0 0 0 0 Result Diagram: 12/11/16 0533 12/11/16 0533 Imaging Last Impressions Cholangiopancreatography MRI 12/06/16 0000 Signed Impressions: Service Date/Time: Tuesday, December 06, 2016 17:40 - CONCLUSION: 1. Biliary ductal dilatation to 1.8 cm without evidence for choledocholithiasis or pancreatic mass. Previous cholecystectomy. No acute findings. Geraldo Whitten MD Abdomen/Pelvis CT 12/05/16 1234 Signed Impressions: Service Date/Time: Monday, December 05, 2016 14:22 - CONCLUSION: 1. No evidence of acute abdominal or pelvic process. No masses are identified. 2. Continued marked dilatation common bile duct 2 cm without evidence of stone. 3. The previously seen cyst at the tail the pancreas is no longer identified. Dony Brown MD Objective Remarks GENERAL: Alert, Oriented x 3, NAD SKIN: Warm and dry. HEAD: Normocephalic. EYES: No scleral icterus. No injection or drainage. NECK: Supple, trachea midline. No JVD or lymphadenopathy. CARDIOVASCULAR: Regular rate and rhythm without murmurs, gallops, or rubs. RESPIRATORY: Breath sounds equal bilaterally. No accessory muscle use. GASTROINTESTINAL: Abdomen soft, non-tender, nondistended. MUSCULOSKELETAL: No cyanosis, or edema. BACK: Nontender without obvious deformity. No CVA tenderness. Procedures EGD 12/06/2016 IMPRESSIONS: 1. Circumferential mass, ? inflammation in the gastric body causing partial obstruction. Food/ liquid retained above this area up into the esophagus. This was suctioned 2. Retroflexed views revealed no abnormalities A/P Problem List: (1) Intractable nausea and vomiting ICD Code: R11.2 Status: Acute Assessment and Plan 86-year-old male with past medical history of metastatic gastric cancer, HTN presented with intractable nausea and vomiting Peritoneal carcinomatosis/metastatic gastric cancer: on chemo with intractable nausea/ vomiting, however oncology does not believe this is related to chemo as last chemo was mid-November. Abdominal CT shows no definite progression of patient 's disease, continued dilation of the common bile duct. Patient's oncologist, Dr. Turner, consulted, appreciated recommendations. - Patient discussed with Surgical oncology along with other family members. - Patient has decided to go with hospice. Hospice was consulted on 2016. Patient has been accepted by the hospice. Intractable nausea and vomiting: As above. GI consulted, performed EGD which showed circumferential mass with possible inflammation in the gastric body causing partial obstruction and fluid retention. Not tolerating clear liquids. IVF. IV Protonix. Antiemetics as needed. Currently on TPN. Hypokalemia/Hypomagnesemia: Worsening. K 3.1 --> 2.8 --> 2.9. Replaced with IV KCl boluses. Potassium with maintenance IVF. Mag 1.7, give IV Mag Sulfate. Repeat K 3.5, Mag 1.8. Hypertension: Chronic, stable. Continue home medications. Insomnia: Continue Restoril. DVT prophylaxis: Lovenox Problem Qualifiers (1) Intractable nausea and vomiting: Qualified Code: R11.2 - Intractable vomiting with nausea, unspecified vomiting type Linda Murillo DO Dec 11, 2016 16:52
[2016-12-11 20:00] VITALS: BP 103/58; PULSE 78; RESP 16; TEMP 98.1; O2SAT 97
[2016-12-11] MEDS: FAT EMULSION 20% INJ 250 ML (Daily over 8 hours) IV-CENTRAL SCH (21:18)
[2016-12-11] MEDS: CLINIMIX E 5/25 2000 mL- >42 mls/hr IV-CENTRAL SCH ×3 (21:19)
[2016-12-11] MEDS: TEMAZEPAM 15 MG CAP PO PRN (21:20)
[2016-12-11] MEDS ORDERED: ACETAMINOPHEN/HYDROcodone 325 MG/5 MG TAB PO ONE (23:15)
[2016-12-12] VITALS: BP 99/56; PULSE 72; RESP 16; TEMP 98; O2SAT 96
[2016-12-12 04:00] VITALS: BP 119/58; PULSE 72; RESP 16; TEMP 98.1; O2SAT 98
[2016-12-12 08:00] VITALS: BP 115/58; PULSE 70; RESP 18; TEMP 96.7; O2SAT 99
[2016-12-12] MEDS: TIMOLOL MALEATE 0.5% OPHT SOLN 5 ML BTL EACH EYE SCH (09:00)
[2016-12-12] MEDS: DORZOLAMIDE/TIMOLOL OPTH SOLN 10 ML BTL EACH EYE SCH (09:00)
[2016-12-12] MEDS: amLODIPine BESYLATE 5 MG TAB PO SCH (09:00)
[2016-12-12] MEDS: METOPROLOL TARTRATE 25 MG TAB PO SCH (09:00)
[2016-12-12] MEDS: SUCRALFATE 1 GM/10 ML CUP PO SCH (09:49)
[2016-12-12] MEDS: FERROUS SULFATE 325 MG (65 MG ELEMENTAL IRON) TAB PO SCH (09:49)
[2016-12-12] MEDS: PANTOPRAZOLE SODIUM 40 MG VIAL IV PUSH SCH (09:50)
[2016-12-12] MEDS: SODIUM CHLORIDE 0.9% FLUSH 10 ML FLUSH IV FLUSH SCH (09:53)
[2016-12-12 12:00] VITALS: BP 114/65; PULSE 70; RESP 18; TEMP 96.3; O2SAT 99
[2016-12-12] MEDS ORDERED: MORPHINE SULFATE 4 MG/ML INJ IV PUSH PRN (12:00)
--- NOTE | 2016-12-12 12:02 | PD.ONC.PN ---
Subjective Subjective Remarks Afebrile overnight. Patient resting with family. He has decided to go to hospice care center. He is complaining of pain and would like something for pain. Objective Data Date Time Temp Pulse Resp B/P Pulse Ox O2 Delivery O2 Flow Rate FiO2 12/12/16 08:00 96.7 70 18 115/58 99 12/12/16 04:00 98.1 72 16 119/58 98 12/12/16 00:00 98.0 72 16 99/56 96 12/11/16 20:00 98.1 78 16 103/58 97 12/11/16 16:00 97.2 77 16 101/57 98 12/11/16 12:00 97.4 75 18 102/56 97 Result Diagram: 12/11/16 0533 12/11/16532 Administered Medications Medications (Trade) Dose Ordered Sig/Karlie Route PRN Reason Start Time Stop Time Status Last Admin Dose Admin Sodium Chloride (NS Flush) 2 ml BID IV FLUSH 12/05/16 21:00 12/12/16 09:53 Acetaminophen (Tylenol) 650 mg Q4H PRN PO TEMP > 100.4 12/05/16 15:45 12/09/16 15:53 Ondansetron HCl (Zofran Inj) 4 mg Q6H PRN IVP NAUSEA OR VOMITING 12/05/16 15:45 12/07/16 09:26 Prochlorperazine (Compazine Supp) 25 mg Q12H PRN RECTAL N/V IF ZOFRAN DOESN'T WORK 12/05/16 15:45 12/07/16 10:26 Enoxaparin Sodium (Lovenox Inj) 40 mg Q24H SQ 12/05/16 15:45 12/11/16 16:20 Amlodipine Besylate (Norvasc) 5 mg DAILY PO 12/06/16 09:00 12/10/16 14:19 Ferrous Sulfate (Ferrous Sulfate) 325 mg DAILY PO 12/06/16 09:00 12/12/16 09:49 Metoprolol Tartrate (Lopressor) 25 mg DAILY PO 12/06/16 09:00 12/09/16 09:33 Timolol Maleate (Timoptic 0.5% Opth Soln) 1 drop BID EACH EYE 12/05/16 21:00 12/07/16 21:04 Pantoprazole Sodium (Protonix Inj) 40 mg Q24H IV PUSH 12/06/16 11:00 12/12/16 09:50 Dorzolamide/ Timolol (Cosopt 2-0.5% Opth Soln) 1 drop BID EACH EYE 12/06/16 21:00 12/12/16 09:00 Sucralfate 1 gm 1 gm BID PO 12/06/16 21:00 12/12/16 09:49 Fat Emulsion Intravenous 250 ml @ 31.25 mls/ hr Q24H IV-CENTRAL 12/07/16 20:00 12/11/16 21:18 Multivitamins/ Folic Acid/Amino Acids/ Electrolytes/ Dextrose (Mvi-12 Inj/ Folvite Inj/ Clinimix E 01/25) 2,010.2 ml @ 75 mls/hr Q24H IV-CENTRAL 12/07/16 20:00 12/11/16 21:19 Temazepam (Restoril) 15 mg HS PRN PO INSOMNIA 12/08/16 17:15 12/11/16 21:20 Pseudoephedrine HCl (Sudafed) 30 mg Q6H PRN PO Ear fullness 12/09/16 16:30 12/10/16 14:19 Morphine Sulfate (Morphine Inj) 2 mg Q30M PRN IV PUSH pain 12/12/16 12:00 12/12/16 11:50 Objective Remarks GENERAL: Elderly male, sitting up in chair with family members, in nad. SKIN: Warm and dry. HEAD: Normocephalic. EYES: No injection or drainage. NECK: Supple, trachea midline. CARDIOVASCULAR: Regular rate and rhythm. RESPIRATORY: Breath sounds equal bilaterally. No accessory muscle use. GASTROINTESTINAL: Abdomen soft, + ttp throughout, nondistended. EXTREMITIES: No cyanosis NEUROLOGICAL: awake and alert, normal speech. moving extremities. 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 --s/p exploratory laparotomy and during surgery the afferent loop was noted to be obstructive and he was also found to have scattered small nodules throughout the abdomen, mostly in the left upper quadrant. --Biopsy showed moderately differentiated adenocarcinoma mucinous features, thought to be gastric cancer. --later had an outpatient PET scan which showed thickened gastric wall with significant hypermetabolic uptake. --aggressive with treatment and was started on dose reduced FOLFOX chemotherapy- ->just completed a fifth cycle of chemotherapy in the middle of November. --do not think his vomiting is due to the chemotherapy. His last chemotherapy was in the middle of November. --CT abdomen did not show clear evidence of progression of disease or obstruction. Assessment 86y/o male with with metastatic gastric cancer, admitted with intractable vomiting and dehydration. h/o Coronary artery disease. Gastric ulcer. Gastroesophageal reflux disease. Gout. Hypertension. Anemia. History:--went to [place] for vacation and while over there he started developing vomiting. no nausea, he will throw up a short while after he eats. He was not able to keep any liquid or solid food down for several days. Dr. Turner saw him in the clinic, he appeared dehydrated. He was directed to go to the emergency room. Plan 1. morphine 2mg IV q30min PRN pain 2. d/c to hospice today Attending Statement The exam, history, and the medical decision-making described in the above note were completed with the assistance of the mid-level provider. I reviewed and agree with the findings presented. I attest that I had a [id number] encounter with the patient on the same day, and personally performed and documented my assessment and findings in the medical record.(late entry). Patient has decided to go to hospice. He is comfortable. His questions were answered. Vikki Tirado Dec 12, 2016 12:02 Ren Turner MD Dec 12, 2016 17:35
--- NOTE | 2016-12-24 14:05 | HHI.DS ---
Discharge Summary Admission Date Dec 07, 2016 at 09:54 Discharge Date: Dec 12, 2016 Admitting Diagnosis Intractable nausea and vomiting, stomach cancer (1) Intractable nausea and vomiting ICD Code: R11.2 Diagnosis: Principal Procedures EGD 12/06/2016 IMPRESSIONS: 1. Circumferential mass, ? inflammation in the gastric body causing partial obstruction. Food/ liquid retained above this area up into the esophagus. This was suctioned 2. Retroflexed views revealed no abnormalities Brief History - From Admission patient is a 86 y/o male with metastatic gastric cancer- on chemo, was advised to come to the hospital by his oncologist because of persistent nausea and vomiting. he says that his last session of chemo was about two weeks ago. he started to have nausea and vomiting since ten days ago. he says that the last time he threw up was earlier tonight. he denies any abdominal pain or diarrhea. he's being followed up by . Imaging Last Impressions Cholangiopancreatography MRI 12/06/16 0000 Signed Impressions: Service Date/Time: Tuesday, December 06, 2016 17:40 - CONCLUSION: 1. Biliary ductal dilatation to 1.8 cm without evidence for choledocholithiasis or pancreatic mass. Previous cholecystectomy. No acute findings. Geraldo Whitten MD Abdomen/Pelvis CT 12/05/16 1234 Signed Impressions: Service Date/Time: Monday, December 05, 2016 14:22 - CONCLUSION: 1. No evidence of acute abdominal or pelvic process. No masses are identified. 2. Continued marked dilatation common bile duct 2 cm without evidence of stone. 3. The previously seen cyst at the tail the pancreas is no longer identified. Dony Brown MD PE at Discharge GENERAL: Alert, Oriented x 3, NAD SKIN: Warm and dry. HEAD: Normocephalic. EYES: No scleral icterus. No injection or drainage. NECK: Supple, trachea midline. No JVD or lymphadenopathy. CARDIOVASCULAR: Regular rate and rhythm without murmurs, gallops, or rubs. RESPIRATORY: Breath sounds equal bilaterally. No accessory muscle use. GASTROINTESTINAL: Abdomen soft, non-tender, nondistended. MUSCULOSKELETAL: No cyanosis, or edema. BACK: Nontender without obvious deformity. No CVA tenderness. Pt update on day of discharge Patient is doing well. He is going to hospice care center. Hospital Course 86-year-old male with past medical history of metastatic gastric cancer, HTN presented with intractable nausea and vomiting Peritoneal carcinomatosis/metastatic gastric cancer: on chemo with intractable nausea/ vomiting, however oncology does not believe this is related to chemo as last chemo was mid-November. Abdominal CT shows no definite progression of patient 's disease, continued dilation of the common bile duct. Patient's oncologist, Dr. Turner, consulted, appreciated recommendations. - Patient discussed with Surgical oncology along with other family members. - Patient has decided to go with hospice. Hospice was consulted on 2016. Patient has been accepted by the hospice. Intractable nausea and vomiting: As above. GI consulted, performed EGD which showed circumferential mass with possible inflammation in the gastric body causing partial obstruction and fluid retention. Not tolerating clear liquids. IVF. IV Protonix. Antiemetics as needed. Currently on TPN. Hypokalemia/Hypomagnesemia: Worsening. K 3.1 --> 2.8 --> 2.9. Replaced with IV KCl boluses. Potassium with maintenance IVF. Mag 1.7, give IV Mag Sulfate. Repeat K 3.5, Mag 1.8. Hypertension: Chronic, stable. Continue home medications. Insomnia: Continue Restoril. DVT prophylaxis: Lovenox Pt Condition on Discharge: Stable Discharge Disposition: Hospice/Med Facility Discharge Time: <= 30 minutes Discharge Instructions DIET: Follow Instructions for: Clear Liquid Diet Additional Diet Instructions: As tolerated, pleasure feeding. Activities you can perform: Regular-No Restrictions Continued Medications: Acetaminophen (Acetaminophen) 325 Mg Tab 650 MG PO Q4H PRN PAIN SCALE 1 TO 5 TAB Amlodipine (Norvasc) 5 Mg Tab 5 MG PO DAILY Blood Pressure Management #30 Ref 0 TAB Amlodipine (Amlodipine) 5 Mg Tab 5 MG PO DAILY Blood Pressure Management #30 Ref 0 TAB Aspirin (Aspirin Low Dose) 81 Mg Chew 81 MG CHEW DAILY Ref 0 TAB Dorzolamide-Timolol Opth Drops (Dorzolamide-Timolol Opth Drops) 22.3-6.8 Mg/Ml Soln 1 DROP EACH EYE BID Glaucoma Ref 0 BOTTLE Dorzolamide-Timolol Opth Drops (Dorzolamide-Timolol Opth Drops) 22.3-6.8 Mg/Ml Soln 1 DROP EACH EYE BID Glaucoma Ref 0 BOTTLE Ferrous Sulfate (Iron) 325 Mg Tab 325 MG PO DAILY Take Nutritional Supplement Ref 0 TAB Fish Oil-Cholecalciferol (Fish Oil + D3) 1,200-1,000 Mg-Unit Cap 1 CAP PO DAILY Nutritional Supplement #30 Ref 0 CAP Metoprolol Tartrate (Metoprolol Tartrate) 25 Mg Tab 25 MG PO DAILY #30 Ref 0 TAB Metoprolol Tartrate (Lopressor) 50 Mg Tab 25 MG PO BID #30 Ref 0 TAB Multiple Vitamin (Multiple Vitamin) 1 Tab 1 TAB PO DAILY Nutritional Supplement Ref 0 TAB Omeprazole (Prilosec) 20 Mg Cap 20 MG PO DAILY #30 Ref 0 CAP Ondansetron (Ondansetron) 8 Mg Tab 8 MG PO TID Nausea/Vomiting Ref 0 TAB Prochlorperazine Maleate (Prochlorperazine Maleate) 10 Mg Tab 10 MG PO Q6H PRN NAUSEA OR VOMITING Ref 0 TAB Timolol Opth Drops (Timolol Opth Drops) 0.5 % Soln 1 DROP EACH EYE BID Glaucoma #1 Ref 0 BOTTLE Linda Murillo DO Dec 24, 2016 14:05
== END 2016-12-12 11:55 | disposition hospice, inpatient (51) | DRG 375 ==
LOC: NEPC 12:00 → NEDA 15:37 → NEPGCP 17:36 → OBSVTOIN 12-07 09:54 → HOCA 12-07 22:15
PROVIDERS: ADMIT Hospitalist; ATTEND Hospitalist
PROC: 0DB68ZX Excision of Stomach, Via Natural or Artificial Opening Endoscopic, Diagnostic (ICD-10-PCS; principal; 2016-12-06 14:45)
DX: C16.9 Malignant neoplasm of stomach, unspecified (principal); C78.6 Secondary malignant neoplasm of retroperitoneum and peritoneum; K25.9 Gastric ulcer, unspecified as acute or chronic, without hemorrhage or perforation; R13.10 Dysphagia, unspecified; E83.42 Hypomagnesemia; E86.0 Dehydration; D50.9 Iron deficiency anemia, unspecified; I25.10 Atherosclerotic heart disease of native coronary artery without angina pectoris; K21.9 Gastro-esophageal reflux disease without esophagitis; M10.9 Gout, unspecified; H40.9 Unspecified glaucoma; R11.2 Nausea with vomiting, unspecified; I10 Essential (primary) hypertension; Z92.21 Personal history of antineoplastic chemotherapy; Z95.2 Presence of prosthetic heart valve; E87.6 Hypokalemia; G47.00 Insomnia, unspecified
CPT/HCPCS: 36415; 74177; 74183; 76377; 80048; 80053; 81001; 82378; 82948; 83605; 83690; 83735; 84100; 85025; 88305; 88312; 96361; 96374; 99212; 99215; A9579; C9113; G0378; G0463; G8987-GP; G8988-GP; J1650; J2270; J2405; J3475; J3480; J7030; Q9967